=== PATIENT | female | born 1990 | race Hispanic/Latino ===

== ENCOUNTER 2025-03-02 14:13 | Emergency (ER) | payer BC ==
--- OUTSIDE RECORDS SUMMARY | 2025-03-02 14:19 | XMS REPORT | Continuity of Care Document ---
Author Name Unknown Address [address] [place] [address] [facility] [place] Address 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 Role Phone FELIPA LICEA Primary Care Physician Unavaila ble Nurse, Adc Pob Immunization Attending Clinician Unavailable Bal Barbour DO Attending Clinician BAL BARBOUR Attending Clinician Unavail able YAHIR ALMANZA Attending Clinician Unavailable WENDY AGUILERA Attending Clinician Unavail able SCOTT RANKIN Attending Clinician Unavailable [facility], ROOM-1 Attending Clinician Unavailable Payers Payer Name Policy Type Policy Number Effective Date Expirati on Date Source [facility] OUT [facility] STATE [id number] 2018 00:00:00 Problems Condition Name Condition Details Condition Category Status Onset Date Resolution Date Last Treatment Date Treating Clinician Comments Source Vaginal delivery Vaginal Delivery Problem Active 02-05 00:00: 00 [facility] Amenorrhea Amenorrhea Problem Active 01-08 00:00: 00 [facility] No known active problems No known active problems Disease [facility] Allergies, Adverse Reactions, Alerts Allergy Name Allergy Type Status Severity Reaction(s) Onset Date Inactive Date Treating Clinician Comments Source No Known Allergie s DA Active U 2018-07 00:00: 00 [facility] No Known Allergie s DA Active U 2 00:00: 00 [facility] No Known Allergie s DA Active U 3- 00:00: 00 [facility] SULFA (SULFONA MIDE ANTIBIOT ICS) Allergy to substanc e Active Other [facility] Reglan Allergy to substanc e Active Muscle cramps [facility] NO KNOWN ALLERGIE S Drug Class Active [facility] Social History Social Habit Start Date Stop Date Quantity Comments Source Sex Assigned At 1990 00:00:00 1990 00:00:00 [facility] Smoking Status Start Date Stop Date Source Unknown if ever smoked [facility] Never Smoker [facility] Medications Ordered Medication Name Filled Medication Name Start Date Stop Date Current Medication? Ordering Clinician Indication Dosage Frequency Signature (SIG) Comments Components Source acetaminoph en-codeine (TYLENOL-CO DEINE #3) 300-30 mg tablet 03-30 00:00: 00 Yes 1{tbl} Take 1 tablet by mouth every 6 (six) hours as needed for Pain (scale 4-6). [facility] alprazolam 0.5 mg tablet TK 1 T PO BID PRF ANXIETY alprazolam 0.5 mg tablet TK 1 T PO BID PRF ANXIETY No alprazolam 0.5 mg tablet TK 1 T PO BID PRF ANXIETY [facility] butalbital- acetaminoph en-caffeine 50 mg-300 mg-40 mg capsule Take 1 capsule every 4 hours by oral route. butalbital- acetaminoph en-caffeine 50 mg-300 mg-40 mg capsule Take 1 capsule every 4 hours by oral route. No 1capsul e(s) Q4H butalbital -acetamino phen-caffe ine 50 mg-300 mg-40 mg capsule Take 1 capsule every 4 hours by oral route. [facility] clindamycin HCl 300 mg capsule clindamycin HCl 300 mg capsule No clindamyci n HCl 300 mg capsule [facility] dextroamphe tamine-amph etamine 30 mg tablet TAKE 1 TABLET BY MOUTH TWICE A DAY dextroamphe tamine-amph etamine 30 mg tablet TAKE 1 TABLET BY MOUTH TWICE A DAY No dextroamph etamine-am phetamine 30 mg tablet TAKE 1 TABLET BY MOUTH TWICE A DAY [facility] fluticasone propionate 50 mcg/actuati on nasal spray,suspe nsion USE 2 SPRAYS IN EACH NOSTRIL IN THE MORNING FOR 7 DAYS. fluticasone propionate 50 mcg/actuati on nasal spray,suspe nsion USE 2 SPRAYS IN EACH NOSTRIL IN THE MORNING FOR 7 DAYS. No fluticason e propionate 50 mcg/actuat ion nasal spray,susp ension USE 2 SPRAYS IN EACH NOSTRIL IN THE MORNING FOR 7 DAYS. [facility] metoclopram vinny 10 mg tablet metoclopram vinny 10 mg tablet No metoclopra mide 10 mg tablet [facility] nortriptyli ne 25 mg capsule TK 1 C PO HS nortriptyli ne 25 mg capsule TK 1 C PO HS No nortriptyl ine 25 mg capsule TK 1 C PO HS [facility] ondansetron 4 mg disintegrat ing tablet ondansetron 4 mg disintegrat ing tablet No ondansetro n 4 mg disintegra ting tablet [facility] Prenate Enhance 28 mg iron-1 mg-400 mg capsule Prenate Enhance 28 mg iron-1 mg-400 mg capsule No Prenate Enhance 28 mg iron-1 mg-400 mg capsule [facility] promethazin e 12.5 mg tablet promethazin e 12.5 mg tablet No promethazi ne 12.5 mg tablet [facility] promethazin e 25 mg rectal suppository INSERT 1 SUPPOSITORY BY RECTAL ROUTE EVERY 6 HOURS NEEDED FOR NAUSEA AND VOMITING promethazin e 25 mg rectal suppository INSERT 1 SUPPOSITORY BY RECTAL ROUTE EVERY 6 HOURS NEEDED FOR NAUSEA AND VOMITING No promethazi ne 25 mg rectal suppositor y INSERT 1 SUPPOSITOR Y BY RECTAL ROUTE EVERY 6 HOURS NEEDED FOR NAUSEA AND VOMITING [facility] promethazin e 25 mg tablet TAKE 1 TABLET BY MOUTH EVERY 6 HOURS NEEDED FOR NAUSEA AND VOMITING promethazin e 25 mg tablet TAKE 1 TABLET BY MOUTH EVERY 6 HOURS NEEDED FOR NAUSEA AND VOMITING No promethazi ne 25 mg tablet TAKE 1 TABLET BY MOUTH EVERY 6 HOURS NEEDED FOR NAUSEA AND VOMITING [facility] sertraline 50 mg tablet TK 1 T PO D. sertraline 50 mg tablet TK 1 T PO D. No sertraline 50 mg tablet TK 1 T PO D. [facility] triazolam 0.25 mg tablet triazolam 0.25 mg tablet No triazolam 0.25 mg tablet [facility] valacyclovi r 500 mg tablet valacyclovi r 500 mg tablet No valacyclov ir 500 mg tablet [facility] zolpidem 5 mg tablet TK 1 T PO QHS zolpidem 5 mg tablet TK 1 T PO QHS No zolpidem 5 mg tablet TK 1 T PO QHS [facility] Vital Signs Vital Name Observation Time Observation Value Comments S ource BP Diastolic 2025-02-14 00:00:00 70 mm[Hg] [facility] Body Weight 2025-02-14 00:00:00 110 [lb_av] [facility] BP Systolic 2025-02-14 00:00:00 110 mm[Hg] [facility] BP Systolic 2025-01-14 00:00:00 109 mm[Hg] [facility] BMI (Body Mass Index) 2025-01-14 00:00:00 20.5 kg/m2 [facility] Body Weight 2025-01-14 00:00:00 105 [lb_av] [facility] Height 2025-01-14 00:00:00 60 [in_i] [facility] BP Diastolic 2025-01-14 00:00:00 74 mm[Hg] [facility] Procedures Procedure Date / Time Performed Performing Clinicia n Source unlisted imaging order 2025-02-14 00:00:00 [facility] US UTERUS 14 WK TRANSABDL GESTAT 2025-01-14 00:00:00 [facility] SARS-COV-2 COVID-19 VACCINE,0.3ML,IM (PFIZER) 2021-05-19 21:57:44 Doctor Unassigned, [facility] SARS-COV-2 COVID-19 VACCINE,0.3ML,IM (PFIZER) 2021-04-28 21:14:59 Doctor Unassigned, [facility] Caesarean Section [facility] ical Encounters Start Date/Time End Date/Time Encounter Type Admission Type Attending [facility] Care Facility Care Department Encounter ID Source 2025-02-14 00:00:00 2025-02-14 00:00:00 Paty Casas MD: [address], [address], [place] [address] , Ph. [facility] [place] Office* [id number] [facility] 2025-01-14 00:00:00 2025-01-14 00:00:00 Paty Casas MD: [address], [address], [place] [address] , Ph. [facility] [place] Office* [id number] [facility] 2021-05-19 16:55:49 2021-05-19 16:55:58 Imm/Inj Visit Nurse, Grayson [facility] [id number] [facility] 2021-05-19 16:30:00 2021-05-19 16:55:58 Outpatient BAL ARRIAGA [facility] [id number] [facility] 2021-04-28 16:20:00 2021-04-28 16:20:00 [id number] 2021-04-28 16:12:29 2021-04-28 16:12:40 Imm/Inj Visit NurseGrayson Immunbethany Barbour [facility] [id number] [facility] 2020-09-30 12:50:00 2020-09-30 12:50:00 Outpatient YAHIR PEACE [facility] [id number] [facility] 2020-09-17 17:00:00 2020-09-17 17:00:00 Outpatient WENDY DUNCAN [facility] [id number] [facility] 2020-08-17 19:40:00 2020-08-17 19:40:00 Outpatient R SCOTT RANKIN [facility] [id number] [facility] 2019-03-14 11:00:00 2019-03-14 11:00:00 Appointmen t; [facility]OM[facility], ROOM-1 [facility], ROOM-1 [facility] [id number] [place] [facility] ans Results Test Description Test Time Test Comments Results Result Co mments Source [facility] (dipstick) panel - [id number] 00:00:00* Test Item Value Reference Range Interpretation Comme nts specific gravity (test code = specific gravity) 1.017 1.005-1.030 pH (test code = pH) 7.0 5.0-7.5 urine-color (test code = urine-color) YELLOW yellow appearance (test code = appearance) CLOUDY clear A WBC esterase (test code = WB C esterase) NEGATIVE negative protein (test code = protein) NEGATIVE negative/trace glucose (test code = glucose) NEGATIVE negative ketones (test code = ketones) NEGATIVE negative occult blood (test code = oc cult blood) NEGATIVE negative bilirubin (test code = bilirubin) NEGATIVE negative urobilinogen,semi-qn (test c ode = urobilinogen,semi-qn) 0.2 mg/dL 0.2-1.0 nitrite, urine (test code = nitrite, urine) NEGATIVE negative microscopic examination (radha t code = microscopic examination) COMMENT [facility] and [facility]ho(D) [id number] 00:00:00* Test Item Value Reference Range Interpretation Comme nts ABO grouping (test code = AB O grouping) O Rh factor (test code = Rh factor) POSITIVE [facility] Medical[facility]asles, Mumps and Rubella virus IgG panel [Units/volume] - Serum or [id number] 00:00:00* Test Item Value Reference Range Interpretation Comme nts rubella antibodies, IgG (test code = rubella antibodies, IgG) 2.18 index See_Comment [Automated Sxbbma ge] The system which generated this result transmitted reference range: immune >0.99. The reference range was not used to interpret this result as normal/abnormal. measles antibodies, IgG (test code = measles antibodies, IgG) <13.5 See_Comment L [Automated Sxbbma ge] The system which generated this result transmitted reference range: immune >16.4. The reference range was not used to interpret this result as normal/abnormal. mumps abs, IgG (test code = mumps abs, IgG) 24.4 AU/mL See_Comment [Automated Sxbbma Defend Your Head] The system which generated this result transmitted reference range: immune >10.9. The reference range was not used to interpret this result as normal/abnormal. [facility] surface Ag [Presence] in Serum or Plasma by [id number] 00:00:00* Test Item Value Reference Range Interpretation Comme nts HBsAg screen (test code = HB sAg screen) NEGATIVE negative [facility] [Presence] in Serum or Plasma 2025-01-16 00:00:00* Test Item Value Reference Range Interpretation Comme nts antibody screen (test code = antibody screen) NEGATIVE negative [facility]P24 Ag with [id number] 00:00:00* Test Item Value Reference Range Interpretation Comme nts HIV Ab/P24 Ag screen (test c ode = HIV Ab/P24 Ag screen) NON REACTIVE non reactive [facility] pallidum screening [id number] 00:00:00* Test Item Value Reference Range Interpretation Comme nts T pallidum antibodies (test code = T pallidum antibodies) NON REACTIVE non reactive interpretation: (test code = interpretation:) COMMENT [facility] electrophoresis panel in [id number] 00:00:00* Test Item Value Reference Range Interpretation Comme nts HGB F (test code = HGB F) 0.0 % 0.0-2.0 HGB A (test code = HGB A) 97.4 % 96.4-98.8 HGB A2 (test code = HGB A2) 2.6 % 1.8-3.2 HGB S (test code = HGB S) 0.0 % See_Comment [Automated Sxbbma ge] The system which generated this result transmitted reference range: 0.0. The reference range was not used to interpret this result as normal/abnormal. interpretation: (test code = interpretation:) COMMENT [facility] panel - [id number] 00:00:00* Test Item Value Reference Range Interpretation Comme nts creatinine, urine (test code = creatinine, urine) 49.9 mg/dL not estab. protein,total,urine (test co de = protein,total,urine) 4.7 mg/dL not estab. protein/creat ratio (test co de = protein/creat ratio) 94 mg/g creat 0-200 [facility] W Auto Differential panel - [id number] 00:00:00* Test Item Value Reference Range Interpretation Comme nts WBC (test code = WBC) 9.8 10 3.7-12.0 RBC (test code = RBC) 3.95 10 3.60-5.50 HGB (test code = HGB) 12.3 g/dL 11.5-15.6 HCT (test code = HCT) 36.6 % 34.5-46.5 MCV (test code = MCV) 92.5 um 80.0-102.0 MCH (test code = MCH) 31.0 pg 25.0-34.1 MCHC (test code = MCHC) 33.5 g/dL 29.0-35.0 RDW (test code = RDW) 14.7 % 10.9-16.9 plt (test code = plt) 266 10 136-392 MPV (test code = MPV) 8.6 um 7.4-11.1 gran % (test code = gran %) 74.0 % 36.0-78.0 lymph % (test code = lymph %) 19.1 % 12.0-48.0 mono % (test code = mono %) 5.2 % 0.0-13.0 eos % (test code = eos %) 1 % 0-8 baso % (test code = baso %) 1 % 0-2 gran # (test code = gran #) 7.3 10 1.2-6.8 H lymph # (test code = lymph #) 1.9 10 0.7-3.2 mono # (test code = mono #) 0.5 10 0.1-0.8 eos # (test code = eos #) 0.1 10 0.0-0.4 baso # (test code = baso #) 0.1 10 0.0-0.2 [facility] A1[facility]/Hemoglobin.total in [id number] 00:00:00* Test Item Value Reference Range Interpretation Comme nts Hemoglobin A1c/Hemoglobin.to amy in Blood (test code = 4548-4) 4.5 % <5.6 [facility] Center[facility] syncytial virus RNA [Presence] in Specimen by KATHARINA with probe [id number] 00:00:00* Test Item Value Reference Range Interpretation Comme nts AST (SGOT) (test code = AST (SGOT)) 31 U/L 0-40 [facility] W[facility]AUTO [id number] 11:21:00* Test Item Value Reference Range Interpretation Comme nts WHITE BLOOD CELL (test code = WBC) 10.8 K/mm3 6.6-12.1 N RED BLOOD CELL (test code = RBC) 3.03 M/mm3 3.45-5.01 L HEMOGLOBIN (test code = HGB) 7.2 g/dL 10.7-13.9 L HEMATOCRIT (test code = HCT) 24.3 % 32.1-42.1 L MEAN CELL VOLUME (test code = MCV) 80 fL 84.1-94.8 L MEAN CELL HGB (test code = MCH) 23.8 pg 27-35 L MEAN CELL HGB CONCETRATION ( test code = MCHC) 29.6 gm/dL 32.2-34.1 L RED CELL DISTRIBUTION WIDTH (test code = RDW) 15.8 % 12.4-16.5 N PLATELET COUNT (test code = PLT) 223 K/mm3 133-385 N IMMATURE PLATELET FRACTION ( test code = IPF) 0.0 % 0.0-10.8 N MEAN PLATELET VOLUME (test c ode = MPV) 9.7 fl 9.1-12.7 N NEUTROPHIL % (test code = NT%) 70.7 % 56.5-79.4 N LYMPHOCYTE % (test code = LY%) 21.7 % 14.3-34.3 N MONOCYTE % (test code = MO%) 4.4 % 5.1-10.4 L EOSINOPHIL % (test code = EO%) 2.1 % 0.1-3.0 N BASOPHIL % (test code = BA%) 0.4 % 0.1-1.0 N NEUTROPHIL # (test code = NT#) 7.6 K/mm3 LYMPHOCYTE # (test code = LY#) 2.3 K/mm3 MONOCYTE # (test code = MO#) 0.5 K/mm3 EOSINOPHIL # (test code = EO#) 0.23 K/mm3 BASOPHIL # (test code = BA#) 0.0 K/mm3 RBC MORPHOLOGY REQUIRED (radha t code = RBCM) NORMAL NORMAL PLATELET MORPHOLOGY REQUIRED (test code = PLTMR) NORMAL NORMAL CBC W/AUTO [id number] 12:29:00* Test Item Value Reference Range Interpretation Comme nts WHITE BLOOD CELL (test code = WBC) 10.3 K/mm3 6.6-12.1 N RED BLOOD CELL (test code = RBC) 3.13 M/mm3 3.45-5.01 L HEMOGLOBIN (test code = HGB) 7.3 g/dL 10.7-13.9 L HEMATOCRIT (test code = HCT) 24.7 % 32.1-42.1 L MEAN CELL VOLUME (test code = MCV) 79 fL 84.1-94.8 L MEAN CELL HGB (test code = MCH) 23.3 pg 27-35 L MEAN CELL HGB CONCETRATION ( test code = MCHC) 29.6 gm/dL 32.2-34.1 L RED CELL DISTRIBUTION WIDTH (test code = RDW) 15.3 % 12.4-16.5 N PLATELET COUNT (test code = PLT) 211 K/mm3 133-385 N IMMATURE PLATELET FRACTION ( test code = IPF) 0.0 % 0.0-10.8 N MEAN PLATELET VOLUME (test c ode = MPV) 9.5 fl 9.1-12.7 N NEUTROPHIL % (test code = NT%) 76.9 % 56.5-79.4 N LYMPHOCYTE % (test code = LY%) 16.6 % 14.3-34.3 N MONOCYTE % (test code = MO%) 4.1 % 5.1-10.4 L EOSINOPHIL % (test code = EO%) 1.5 % 0.1-3.0 N BASOPHIL % (test code = BA%) 0.2 % 0.1-1.0 N NEUTROPHIL # (test code = NT#) 8.0 K/mm3 LYMPHOCYTE # (test code = LY#) 1.7 K/mm3 MONOCYTE # (test code = MO#) 0.4 K/mm3 EOSINOPHIL # (test code = EO#) 0.15 K/mm3 BASOPHIL # (test code = BA#) 0.0 K/mm3 RBC MORPHOLOGY REQUIRED (radha t code = RBCM) NORMAL NORMAL PLATELET MORPHOLOGY REQUIRED (test code = PLTMR) NORMAL NORMAL QUESTIONBLE RESULT,RECOLLECT,SPOKE WITH SANDOVAL HEPATITIS B [id number] 14:13:00* Test Item Value Reference Range Interpretation Comme nts AG HEPATITIS B SURFACE (test code = HBSAG) NONREACTIVE NONREACTIVE AB HEPATITIS C [id number] 14:13:00* Test Item Value Reference Range Interpretation Comme nts AB HEPATITIS C (test code = HCVAB) NONREACTIVE NONREACTIVE SIGNAL TO CUTOFF (test code = CUTOFF) <0.02 <0.80 N AB [id number] 14:13:00* Test Item Value Reference Range Interpretation Comme nts AB TREPONEMA (test code = TREPAB) NONREACTIVE NONREACTIVE AB HIV 1 14:13:00* Test Item Value Reference Range Interpretation Comme nts AB HIV 1 2 (test code = [id number]) Nonreactive NonReactive It is recognized that currently available assays for thedetection of antibodies to HIV-1 and/or HIV-2 may notdetect all infected individuals. A negative test result doesnot exclude the possibility of exposure to or infection withHIV. HIV antibodies may be undetectable in some stages ofthe infection and in some clinical conditions. AB HIV 1 14:12:00* Test Item Value Reference Range Interpretation Comme nts AB HIV 1 2 (test code = [id number]) Nonreactive NonReactive It is recognized that currently available assays for thedetection of antibodies to HIV-1 and/or HIV-2 may notdetect all infected individuals. A negative test result doesnot exclude the possibility of exposure to or infection withHIV. HIV antibodies may be undetectable in some stages ofthe infection and in some clinical conditions. CBC W/AUTO [id number] 06:29:00* Test Item Value Reference Range Interpretation Comme nts WHITE BLOOD CELL (test code = WBC) 12.8 K/mm3 6.6-12.1 H RED BLOOD CELL (test code = RBC) 2.81 M/mm3 3.45-5.01 L HEMOGLOBIN (test code = HGB) 6.4 g/dL 10.7-13.9 LL RESULTS CALLED Saida MEHTA G.RN.READ BACK & CONFIRMED? Y.BY F.LAB.[facility] 07/06/19626.Results verified by repeat analysis HEMATOCRIT (test code = HCT) 21.8 % 32.1-42.1 L RESULTS CALLED Saida MEHTA G.RNREAD BACK & CONFIRMED? YBY F.LAB.[facility] 07/06/1928Results verified by repeat analysis MEAN CELL VOLUME (test code = MCV) 78 fL 84.1-94.8 L MEAN CELL HGB (test code = MCH) 22.8 pg 27-35 L MEAN CELL HGB CONCETRATION (test code = MCHC) 29.4 gm/dL 32.2-34.1 L RED CELL DISTRIBUTION WIDTH (test code = RDW) 14.9 % 12.4-16.5 N PLATELET COUNT (test code = PLT) 173 K/mm3 133-385 N IMMATURE PLATELET FRACTION (test code = IPF) 0.0 % 0.0-10.8 N MEAN PLATELET VOLUME (test code = MPV) 10.4 fl 9.1-12.7 N NEUTROPHIL % (test code = NT%) 66.8 % 56.5-79.4 N LYMPHOCYTE % (test code = LY%) 24.6 % 14.3-34.3 N MONOCYTE % (test code = MO%) 7.5 % 5.1-10.4 N EOSINOPHIL % (test code = EO%) 0.5 % 0.1-3.0 N BASOPHIL % (test code = BA%) 0.2 % 0.1-1.0 N NEUTROPHIL # (test code = NT#) 8.6 K/mm3 LYMPHOCYTE # (test code = LY#) 3.2 K/mm3 MONOCYTE # (test code = MO#) 1.0 K/mm3 EOSINOPHIL # (test code = EO#) 0.07 K/mm3 BASOPHIL # (test code = BA#) 0.0 K/mm3 RBC MORPHOLOGY REQUIRED (test code = RBCM) NORMAL NORMAL PLATELET MORPHOLOGY REQUIRED (test code = PLTMR) NORMAL NORMAL AG HEPATITIS B [id number] 10:07:00* Test Item Value Reference Range Interpretation Comme nts AG HEPATITIS B SURFACE (test code = HBSAG) NONREACTIVE NONREACTIVE AB HEPATITIS C [id number] 10:07:00* Test Item Value Reference Range Interpretation Comme nts AB HEPATITIS C (test code = HCVAB) NONREACTIVE NONREACTIVE SIGNAL TO CUTOFF (test code = CUTOFF) <0.02 <0.80 N AB [id number] 10:07:00* Test Item Value Reference Range Interpretation Comme nts AB TREPONEMA (test code = TREPAB) NONREACTIVE NONREACTIVE AB HIV 1 10:07:00* Test Item Value Reference Range Interpretation Comme nts AB HIV 1 2 (test code = [id number]) NONREACTIVE AG HEPATITIS B [id number] 09:36:00* Test Item Value Reference Range Interpretation Comme nts AG HEPATITIS B SURFACE (test code = HBSAG) NONREACTIVE NONREACTIVE AB HEPATITIS C [id number] 09:36:00* Test Item Value Reference Range Interpretation Comme nts AB HEPATITIS C (test code = HCVAB) NONREACTIVE SIGNAL TO CUTOFF (test code = CUTOFF) <0.80 AB [id number] 09:36:00* Test Item Value Reference Range Interpretation Comme nts AB TREPONEMA (test code = TREPAB) NONREACTIVE NONREACTIVE AB HIV 1 09:36:00* Test Item Value Reference Range Interpretation Comme nts AB HIV 1 2 (test code = [id number]) NONREACTIVE COMPREHENSIVE METABOLIC [id number] 09:26:00* Test Item Value Reference Range Interpretation Comme nts SODIUM (test code = NA) 141 mEq/L 135-145 N POTASSIUM (test code = K) 2.8 mEq/L 3.5-5.0 LL RESULTS VERIFIED BY REPEAT ANALYSISRESULTS CALLED TO LEVI JoelREAD BACK & CONFIRMED? YES.BY F.LAB.ELB1 07/05/1987. CHLORIDE (test code = CL) 105 mEq/L 100-115 N CARBON DIOXIDE (test code = CO2) 26 mEq/L 22-31 N ANION GAP (test code = GAP) 13.00 10-20 N GLUCOSE (test code = GLU) 86 mg/dL 65-110 N BLOOD UREA NITROGEN (test code = BUN) 4 mg/dL 7-18 L GLOMERULAR FILTRATION RATE (test code = GFR) 190 ml/min >60 N CREATININE (test code = CREAT) 0.4 mg/dL 0.5-1.0 L TOTAL PROTEIN (test code = PROT) 5.3 gm/dL 6.3-8.2 L ALBUMIN (test code = ALB) 2.3 gm/dL 3.4-4.8 L CALCIUM (test code = CA) 7.9 mg/dL 8.4-10.2 L BILIRUBIN TOTAL (test code = BILT) 0.2 mg/dL 0.2-1.0 N SGOT/AST (test code = AST) 18 units/L 15-37 N SGPT/ALT (test code = ALT) 15 units/L 12-78 N ALKALINE PHOSPHATASE TOTAL (test code = ALKP) 150 units/L 46-116 H CBC W/AUTO [id number] 08:57:00* Test Item Value Reference Range Interpretation Comme nts WHITE BLOOD CELL (test code = WBC) 9.3 K/mm3 6.6-12.1 N RED BLOOD CELL (test code = RBC) 3.40 M/mm3 3.45-5.01 L HEMOGLOBIN (test code = HGB) 7.8 g/dL 10.7-13.9 L HEMATOCRIT (test code = HCT) 26.0 % 32.1-42.1 L MEAN CELL VOLUME (test code = MCV) 77 fL 84.1-94.8 L MEAN CELL HGB (test code = MCH) 22.9 pg 27-35 L MEAN CELL HGB CONCETRATION ( test code = MCHC) 30.0 gm/dL 32.2-34.1 L RED CELL DISTRIBUTION WIDTH (test code = RDW) 15.1 % 12.4-16.5 N PLATELET COUNT (test code = PLT) 211 K/mm3 133-385 N IMMATURE PLATELET FRACTION ( test code = IPF) 0.0 % 0.0-10.8 N MEAN PLATELET VOLUME (test c ode = MPV) 10.6 fl 9.1-12.7 N NEUTROPHIL % (test code = NT%) 67.8 % 56.5-79.4 N LYMPHOCYTE % (test code = LY%) 23.9 % 14.3-34.3 N MONOCYTE % (test code = MO%) 6.4 % 5.1-10.4 N EOSINOPHIL % (test code = EO%) 1.2 % 0.1-3.0 N BASOPHIL % (test code = BA%) 0.3 % 0.1-1.0 N NEUTROPHIL # (test code = NT#) 6.3 K/mm3 LYMPHOCYTE # (test code = LY#) 2.2 K/mm3 MONOCYTE # (test code = MO#) 0.6 K/mm3 EOSINOPHIL # (test code = EO#) 0.11 K/mm3 BASOPHIL # (test code = BA#) 0.0 K/mm3 RBC MORPHOLOGY REQUIRED (radha t code = RBCM) NORMAL NORMAL PLATELET MORPHOLOGY REQUIRED (test code = PLTMR) NORMAL NORMAL URINALYSIS [id number] 01:36:00* Test Item Value Reference Range Interpretation Comme nts UA COLOR (test code = COLU) STRAW YELLOW UA APPEARANCE (test code = APPU) CLEAR CLEAR UA GLUCOSE DIPSTICK (test co de = DGLUU) NEGATIVE NEG UA BILIRUBIN DIPSTICK (test code = BILU) NEGATIVE NEG UA KETONE DIPSTICK (test cod e = KETU) NEGATIVE NEG UA SPECIFIC GRAVITY (test co de = SGU) 1.006 1.001-1.035 N UA BLOOD DIPSTICK (test code = HERO) NEG NEG UA PH DIPSTICK (test code = KVNG) 7.0 5-9 UA PROTEIN DIPSTICK (test co de = PROU) NEGATIVE NEG UA UROBILINIOGEN DIPSTICK (test code = URO) NEGATIVE mg/dL NEG UA NITRITE DIPSTICK (test co de = BANDAR) NEG NEG UA LEUKOCYTE ESTERASE DIPSTI CK (test code = LEUU) NEG NEG UA WBC (test code = WBCU) 0-2 #/hpf NONE SEEN UA RBC (test code = RBCU) 0-2 #/hpf NONE SEEN UA EPITHELIAL CELLS (test co de = EPIU) RARE #/HPF RARE-FEW URINE SAMPLE: CLEAN CATCH- US PREG UT [id number] 21:03:00Patient Name: RUSH JO Unit No: [id number] EXAMS: CPT CODE: [id number] US PREG UT TRANSVAGINAL 16531 TRANSABDOMINAL OBSTETRICAL PELVIC ULTRASOUND AND BIOPHYSICAL PROFILE INDICATION: IUP 33.0 WEEKS; DECREASED MOVEMENT. UTERINE CONTRACTIONS. TECHNIQUE: Transabdominal obstetrical pelvic ultrasound was performed with penny scale and Doppler images. A biophysical profile was performed.COMPARISONS: Obstetric ultrasound 03/22/2019 FINDINGS: The cervix is closed and the cervical length measures between 2.2 and 3.2 cm. There is a grade 2-3 posterior fundal placenta. There is no placenta previa or placental abruption. There is a single live intrauterine gestation in vertex presentation. The heart rate is 121 bpm. The amniotic fluid index is 13.6 cm. The deepest vertical pocketis 7.1 cm. Biophysical profile: breathin/2 tone: 2/2 movement: 2/2 Amniotic fluid: 2/2 Total score: 8/8 The maternal right ovary measures 3 x 2.3 x 2.2 cm. The left ovary is notvisualized. IMPRESSION: 1. There is a single live intrauterine gestation in vertex presentation. 2.Normal biophysical profile score of 8/8. 3. Normal amniotic fluid index of 13.6 cm. 4. There is no placenta previa or placental abruption. 5. The cervix is closed and the cervical length measures between 2.2 and 3.2 cm. at 2102 Reported and signed by: Nixon Ham DO [facility] NAME: RUSH JO Radiology Department PHYS: Yehuda Eaton MD [address] : 1990 AGE: 29 SEX: F [place], [place] [address] LOC: Viviana.SHELL PHONE #: [phone] EXAM DATE: 06/12/2019 STATUS: REG FAX #: [phone] RAD NO: Page 1 Signed Report (CONTINUED) Patient Name: GREGORIO JORICHARDSON Osborn Unit No: [id number] EXAMS: CPT CODE: [id number] PREG UT TRANSVAGINAL 54150 (Continued) CC: Yehuda Eaton MD Technologist: Niharika Winn RDMS Probe: [id number] Trnscrbd D/ (2102) [id number] Orig Print D/T: S: 06/12/2019 (2105) [facility] NAME: RUSH JO Radiology Department PHYS: ENID. Yehuda Eaton MD [address] : 1990 AGE: 29 SEX: [place] [address] LOC: PetronaSHELL PHONE #: [phone] EXAM DATE: 06/12/2019 STATUS: REG ER FAX #: [phone] RAD NO: Page 2 Signed Report Patient Name: RUSH JO Unit No: [id number] EXAMS: CPT CODE: [id number] US PREG UT TRANSVAGINAL 46145 (Continued) [facility] NAME: RUSH JO Radiology Department PHYS: Yehuda Eaton MD[address] : 1990 AGE: 29 SEX: F [place] [address] LOC: PetronaSHELL PHONE #: [phone] EXAM DATE: 06/12/2019 STATUS: REG ER FAX #: [phone] RAD NO: Page 3 SignedReport- US FET BIO PH KS W/O NST 2019-06-12 21:03:00Patient Name: RUSH JO Unit No: [id number] EXAMS: CPT CODE: [id number] US FET BIO PH KS W/O NST [address]187 TRANSABDOMINAL OBSTETRICAL PELVIC ULTRASOUND AND BIOPHYSICAL PROFILE INDICATION: IUP 33.0 WEEKS; DECREASED MOVEMENT. UTERINE CONTRACTIONS. TECHNIQUE: Transabdominal obstetrical pelv ic ultrasound was performed with penny scale and Doppler images. A biophysical profile was performed. COMPARISONS: Obstetric ultrasound 03/22/2019 FINDINGS: The cervix is closed and the cervical lengthmeasures between 2.2 and 3.2 cm. There is a grade 2-3 posterior fundal placenta. There is no placenta previa or placental abruption. There is a single live intrauterine gestation in vertex presentation. The heart rate is 121 bpm. The amniotic fluid index is 13.6 cm. The deepest vertical pocket is 7.1 cm. Biophysical profile: breathin/2 tone: 2/2 movement: 2/2 Amniotic fluid: 2/2 Total score: 8/8 The maternal right ovary measures 3 x 2.3 x 2.2 cm. The left ovary is not visualized. IMPRESSION: 1. There is a single live intrauterine gestation in vertex presentation. 2. Normal biophysical profile score of 8/8. 3. Normal amniotic fluid index of 13.6 cm. 4. There is no placenta previa or placental abruption. 5. The cervix is closed and the cervical length measures between 2.2 and 3.2 cm. at 2102 Reported and signed by: Nixon Ham DO [facility] NAME: RUSH JO Radiology Department PHYS: ENID Yehuda Eaton MD [address] : 1990 AGE: 29 SEX: F [place] [address] LOC: F.SHELL PHONE #: [phone] EXAM DATE: 06/12/2019 STATUS: REG ER FAX #: [phone] RAD NO: Page 1 Signed Report (CONTINUED) Patient Name: RUSH JOit No: [id number] EXAMS: CPT CODE: [id number] US FET BIO PH KS W/O NST 12548 (Continued) CC: Yehuda Eaton MD Technologist: Niharika Winn RDMS Probe: Trnscrbd D/ (2102) [email or web address] Orig Print D/T: S: 06/12/2019 (2105) [facility] NAME: RUSH JO Radiology Department PHYS: ENID. Yehuda Eaton MD [address] : 1990 AGE: 29 SEX: F [place] [address] LOC: F.SHELL PHONE #: [phone] EXAM DATE: 06/12/2019 STATUS: REG ER FAX #: [phone] RAD NO: Page 2 Signed Report Patient Name: RUSH JO Unit No: [id number] EXAMS: CPT CODE: [id number] US FET BIO PH KS W/O NST [address] (Continued) [facility] NAME: RUSH JO Radiology Department PHYS: ENID.Chapis Yehuda Eaton MD [address] : 1990 AGE: 29 SEX: F [place], [place] [address] LOC: F.SHELL PHONE #: [phone] EXAM DATE: 06/12/2019 STATUS: REG ER FAX #: [phone] RAD NO: Page 3 Signed ReportFETAL [id number] 20:38:00* Test Item Value Reference Range Interpretation Comme nts FIBRONECTIN (test code = FFN) NEGATIVE Among symptoma tic women, elevated levels (>0.05 ug/mL) offFN between 24 weeks and 34 weeks, 6 days indicate increasedrisk of delivery in <= 7 or <= 14 days from samplecollection. Similarly, among asymptomatic women, elevated levels of fFNbetween 22 weeks and 30 weeks, 6 days indicate increasedrisk of delivery in <= 34 weeks, 6 days of gestation. URINALYSIS [id number] 20:01:00* Test Item Value Reference Range Interpretation Comme nts UA COLOR (test code = COLU) STRAW YELLOW UA APPEARANCE (test code = APPU) CLEAR CLEAR UA GLUCOSE DIPSTICK (test co de = DGLUU) NEGATIVE NEG UA BILIRUBIN DIPSTICK (test code = BILU) NEGATIVE NEG UA KETONE DIPSTICK (test cod e = KETU) TRACE NEG A UA SPECIFIC GRAVITY (test co de = SGU) 1.008 1.001-1.035 N UA BLOOD DIPSTICK (test code = HERO) NEG NEG UA PH DIPSTICK (test code = KVNG) 7.0 5-9 UA PROTEIN DIPSTICK (test co de = PROU) NEGATIVE NEG UA UROBILINIOGEN DIPSTICK (test code = URO) NEGATIVE mg/dL NEG UA NITRITE DIPSTICK (test co de = BANDAR) NEG NEG UA LEUKOCYTE ESTERASE DIPSTI CK (test code = LEUU) NEG NEG UA WBC (test code = WBCU) #/hpf NONE SEEN UA EPITHELIAL CELLS (test co de = EPIU) #/HPF RARE-FEW Comments to Patient Carrier: LDO AURINE SAMPLE: CLEAN CATCHURINALYSIS COMPLETE 2019-06-12 20:01:00* Test Item Value Reference Range Interpretation Comme nts UA COLOR (test code = COLU) STRAW YELLOW UA APPEARANCE (test code = APPU) CLEAR CLEAR UA GLUCOSE DIPSTICK (test co de = DGLUU) NEGATIVE NEG UA BILIRUBIN DIPSTICK (test code = BILU) NEGATIVE NEG UA KETONE DIPSTICK (test cod e = KETU) TRACE NEG A UA SPECIFIC GRAVITY (test co de = SGU) 1.008 1.001-1.035 N UA BLOOD DIPSTICK (test code = HERO) NEG NEG UA PH DIPSTICK (test code = KVNG) 7.0 5-9 UA PROTEIN DIPSTICK (test co de = PROU) NEGATIVE NEG UA UROBILINIOGEN DIPSTICK (test code = URO) NEGATIVE mg/dL NEG UA NITRITE DIPSTICK (test co de = BANDAR) NEG NEG UA LEUKOCYTE ESTERASE DIPSTI CK (test code = LEUU) NEG NEG UA WBC (test code = WBCU) 0-2 #/hpf NONE SEEN UA RBC (test code = RBCU) 0-2 #/hpf NONE SEEN UA EPITHELIAL CELLS (test co de = EPIU) RARE #/HPF RARE-FEW UA BACTERIA (test code = BACU) NEGATIVE /HPF RARE-FEW Comments to Patient Carrier: JUAN C ESPINOZA SAMPLE: CLEAN CATCHURINALYSIS COMPLETE 2019-06-06 16:49:00* Test Item Value Reference Range Interpretation Comme nts UA COLOR (test code = COLU) STRAW YELLOW UA APPEARANCE (test code = APPU) CLEAR CLEAR UA GLUCOSE DIPSTICK (test co de = DGLUU) NEGATIVE NEG UA BILIRUBIN DIPSTICK (test code = BILU) NEGATIVE NEG UA KETONE DIPSTICK (test cod e = KETU) NEGATIVE NEG UA SPECIFIC GRAVITY (test co de = SGU) 1.008 1.001-1.035 N UA BLOOD DIPSTICK (test code = HERO) NEG NEG UA PH DIPSTICK (test code = KVNG) 7.0 5-9 UA PROTEIN DIPSTICK (test co de = PROU) NEGATIVE NEG UA UROBILINIOGEN DIPSTICK (test code = URO) NEGATIVE mg/dL NEG UA NITRITE DIPSTICK (test co de = BANDAR) NEG NEG UA LEUKOCYTE ESTERASE DIPSTI CK (test code = LEUU) NEG NEG UA WBC (test code = WBCU) 0-2 #/hpf NONE SEEN UA RBC (test code = RBCU) 0-2 #/hpf NONE SEEN UA EPITHELIAL CELLS (test co de = EPIU) RARE #/HPF RARE-FEW UA BACTERIA (test code = BACU) NEGATIVE /HPF RARE-FEW UA MUCUS (test code = MUCU) RARE NONE SEEN URINE SAMPLE: CLEAN CATCHINFLUENZA A B [id number] 03:37:00* Test Item Value Reference Range Interpretation Comme nts INFLUENZA A PCR (test code = FLUAPCR) NEGATIVE NEGATIVE INFLUENZA B PCR (test code = FLUBPCR) NEGATIVE NEGATIVE - US [id number] 02:01:00Patient Name: RUSH JO Unit No: [id number] EXAMS: CPT CODE: [id number] US LTD 12350 EXAM: US, US LTD: 03/22/2019, 0040 hours History: Short of breath. Feeding faint. 21 weeks . Comparison: 12/10/2018. TECHNIQUE: Sonographic evaluation is performed via transabdominal approach of the uterus using grayscale, color flow and Doppler imaging as appropriate.FINDINGS: Single live intrauterine gestation is noted in breech presentation. heart rate is 150 bpm. Placenta is fundal, grade 1. No evidence of placenta previa. Amniotic fluid is normal. Amniotic fluid index is 14.9 cm with largest pocket measuring 5.5 cm. Right ovary: 2.7 x 2.1 x 2.5 cm. Left ovary 2.1 x 1.4 x 1.9 cm. There is a 1.5 x 1.6 x 1.4 cm cyst in the right ovary. Normal flow is noted to the both ovaries. Cervical length is 3.8 cm. IMPRESSION: 1. Single viable intrauterine gestation in breech presentation. heart rate is 150 bpm. 2. Right ovarian cyst. SL: JORJE at 0201 Reported and signed by: Paul Camejo M.D. CC: Yehuda Eaton MD Technologist: JOURDAN SANTO RDMS, RVT Probe: Trnscrbd D/ (0201) [email or web address] Orig Print D/T: S: 03/22/2019 (0204) [facility] NAME: RUSH JO Radiology Department PHYS: Omega Bradford [address] : 1990 AGE: 28 SEX: F [place] [address] LOC: PetronaERS PHONE #: [phone] EXAM DATE:03/22/2019 STATUS: REG ER FAX #: [phone] RAD NO: Page 1 Signed Report Patient Name: LUC JO Unit No: [id number] EXAMS: CPT CODE: [id number] LTD 66981 (Continued) [facility] NAME: RUSH JO Radiology Department PHYS: Omega Bradford [address] : 1990 AGE: 28 SEX: F [place] [address] LOC: PetronaERS PHONE #: [phone] EXAM DATE: 03/22/2019 STATUS: REG ER FAX #: [phone] RAD NO: Page 2 Signed ReportB-TYPE NATRIURETIC [id number] 01:51:00* Test Item Value Reference Range Interpretation Comme nts B-TYPE NATRIURETIC PEPTIDE ( test code = BNP) 9.59 pg/mL 0-100 N Comments to Patient Carrier: Clean CatchSpecimen Comment: Clean CatchDRUGS OF ABUSE [id number] 01:51:00* Test Item Value Reference Range Interpretation Comme nts UR COCAINE (test code = COCAU) NEGATIVE NEGATIVE DETECTION CUT OF F: 150 ng/mL UR CANNABINOIDS (test code = CANU) NEGATIVE NEGATIVE DETECTION CUT OF F: 50 ng/mL UR AMPHETAMINE (test code = AMPHU) NEGATIVE NEGATIVE DETECTION CUT OF F: 500 ng/mL UR BARBITURATE QUAL (test code = BARBQLU) NEGATIVE NEGATIVE DETECTION CUT OF F: 200 ng/mL UR BENZODIAZEPINE (test code = BENZU) NEGATIVE NEGATIVE DETECTION CUT OF F: 150 ng/mL UR OPIATES QUAL (test code = OPIAQLU) NEGATIVE NEGATIVE DETECTION CUT OF F: 100 ng/mL UR PHENCYCLIDINE (PCP) (test code = PHENCU) NEGATIVE NEGATIVE DETECTION C UT OFF: 25 ng/mL Comments to Patient Carrier: Clean CatchSpecimen Comment: Clean CatchUA RFLX MICR CULT IF [id number] 01:47:00* Test Item Value Reference Range Interpretation Comme nts UA COLOR (test code = COLU) YELLOW YELLOW UA APPEARANCE (test code = APPU) CLEAR CLEAR UA GLUCOSE DIPSTICK (test code = DGLUU) NEGATIVE NEGATIVE UA BILIRUBIN DIPSTICK (test code = BILU) NEGATIVE NEGATIVE UA KETONE DIPSTICK (test cod e = KETU) NEGATIVE NEGATIVE UA SPECIFIC GRAVITY (test code = SGU) 1.008 1.001-1.035 N UA BLOOD DIPSTICK (test code = HERO) NEGATIVE NEGATIVE UA PH DIPSTICK (test code = KVNG) 7.0 5-9 UA PROTEIN DIPSTICK (test code = PROU) NEGATIVE NEGATIVE UA UROBILINIOGEN DIPSTICK (test code = URO) NEGATIVE mg/dL NEG UA NITRITE DIPSTICK (test code = BANDAR) NEGATIVE NEGATIVE UA LEUKOCYTE ESTERASE DIPSTICK (test code = LEUU) NEGATIVE NEG UA WBC (test code = WBCU) 0-2 #/hpf NONE SEEN UA RBC (test code = RBCU) NONE SEEN #/hpf NONE SEEN UA EPITHELIAL CELLS (test code = EPIU) RARE #/HPF RARE-FEW UA BACTERIA (test code = BACU) RARE #/hpf NONE SEEN UA MUCUS (test code = MUCU) RARE NONE SEEN Indication for culture: Flank PainPROTHROMBIN [id number] 01:42:00* Test Item Value Reference Range Interpretation Comme nts PROTHROMBIN TIME PATIENT (te st code = PTP) 10.4 secs 10.4-12.4 N IS PATIENT ON ANTICOAGULANTS ? NINTERNATIONAL NORMAL [id number] 01:42:00* Test Item Value Reference Range Interpretation Comme nts INTERNATIONAL NORMAL RATIO (test code = INR) 0.94 The INR is to be used only for monitoring oral anticoagulanttherapy. INDICATION INR VALUE 1. Prophylaxis including high risk surgery 2.0 - 2.52. Deep venous thrombosis. Pulmonary embolism. Atrial fibrillation or bioprosthetic heart valves 2.0 - 3.03. Mechanical heart valves or recurrent systemic embolism. 3.0 - 3.5 IS PATIENT ON ANTICOAGULANTS ? NTHROMBOPLASTIN TIME [id number] 01:42:00* Test Item Value Reference Range Interpretation Comme nts THROMBOPLASTIN TIME PARTIAL (test code = PTT) 25.7 secs 22-38 N IS PATIENT ON ANTICOAGULANTS ? [id number] 01:42:00* Test Item Value Reference Range Interpretation Comme nts FIBRINOGEN (test code = FIB) 327 mg/dL 309-518 N IS PATIENT ON ANTICOAGULANTS ? ND-DIMER [id number] 01:42:00* Test Item Value Reference Range Interpretation Comme nts D-DIMER QUANT (test code = DDIMER) 506 ng/mLDDU <255 H Reference Range in : <570 ng/ml A positive test does not provide a definitive diagnosis ofDVT and indicates the need for follow up clinical studies. The predictive value of a negative test is 98% for rulingout DVT. IS PATIENT ON ANTICOAGULANTS ? N- XR CHEST 2 [id number] 01:39:00Patient Name: RUSH JO Unit No: [id number] EXAMS: CPT CODE: [id number] XR CHEST 2 V 25388 EXAM: CR, XR chest 2 views: 03/22/2019, 0125 hours HISTORY: , sob TECHNIQUE: Frontal and lateral chest radiographs are obtained COMPARISON: None available. FINDINGS: Trachea is in midline. Heart is normal in size. Pulmonary vascularity is not congested. No airspace consolidation, pneumothorax or pleural effusion is seen. Osseous structures are unremarkable. IMPRESSION: No acute cardiopulmonary disease seen. SL:[JSYED-H] at 0139 Reported and signed by: Paul Camejo M.D. CC: Yehuda Eaton MD Technologist: Mary Kay Stout, RTTrnscrbd D/ (0139) saida.[email or web address] Orig Print D/T: S: 03/22/2019 (0142) [facility] NAME: RUSH JO Radiology Department PHYS: GABRIEL AnandOmega Keiry [address] : 1990 AGE: 28 SEX: F [place], [place] [address] LOC: EULALIA PHONE #: [phone] EXAM DATE: 03/22/2019 STATUS: REG ER FAX #: [phone] RAD NO: Page 1 Signed Report COMPREHENSIVE METABOLIC [id number] 01:24:00* Test Item Value Reference Range Interpretation Comme nts SODIUM (test code = NA) 139 mEq/L 135-145 N POTASSIUM (test code = K) 3.6 mEq/L 3.5-5.0 N CHLORIDE (test code = CL) 105 mEq/L 100-115 N CARBON DIOXIDE (test code = CO2) 24 mEq/L 22-31 N ANION GAP (test code = GAP) 13.50 10-20 N GLUCOSE (test code = GLU) 88 mg/dL 65-110 N BLOOD UREA NITROGEN (test co de = BUN) 5 mg/dL 7-18 L GLOMERULAR FILTRATION RATE ( test code = GFR) 191 ml/min >60 N CREATININE (test code = CREAT) 0.4 mg/dL 0.5-1.0 L TOTAL PROTEIN (test code = PROT) 6.3 gm/dL 6.3-8.2 N ALBUMIN (test code = ALB) 2.8 gm/dL 3.4-4.8 L CALCIUM (test code = CA) 8.3 mg/dL 8.4-10.2 L BILIRUBIN TOTAL (test code = BILT) 0.1 mg/dL 0.2-1.0 L SGOT/AST (test code = AST) 16 units/L 15-37 N SGPT/ALT (test code = ALT) 15 units/L 12-78 N ALKALINE PHOSPHATASE TOTAL ( test code = ALKP) 76 units/L 46-116 N Comments to Patient Carrier: Clean CatchSpecimen Comment: Clean CatchCREATINE KINASE (CK)2019-03-22 01:24:00* Test Item Value Reference Range Interpretation Comme nts CREATINE KINASE (CK) (test c ode = CK) 58 Units/L 26-192 N Comments to Patient Carrier: Clean CatchSpecimen Comment: Clean CatchLIPASE 2019-03-22 01:24:00* Test Item Value Reference Range Interpretation Comme nts LIPASE (test code = LIP) 98 units/L 73-393 N Comments to Patient Carrier: Clean CatchSpecimen Comment: Clean CatchMAGNESIUM 2019-03-22 01:24:00* Test Item Value Reference Range Interpretation Comme nts MAGNESIUM (test code = MAG) 1.5 mg/dL 1.8-2.4 L Comments to Patient Carrier: Clean CatchSpecimen Comment: Clean CatchTHYROID STIMULATING [id number] 01:24:00* Test Item Value Reference Range Interpretation Comme nts THYROID STIMULATING HORMONE (test code = TSH) 1.67 0.36-3.74 N Test Performed i n MicroInternational Units/mL Comments to Patient Carrier: Clean CatchSpecimen Comment: Clean CatchTROPONIN-I 2019-03-22 01:24:00* Test Item Value Reference Range Interpretation Comme nts TROPONIN-I (test code = TROPI) <0.017 ng/mL <0.056 N Comments to Patient Carrier: Clean CatchSpecimen Comment: Clean CatchB-TYPE NATRIURETIC [id number] 01:11:00* Test Item Value Reference Range Interpretation Comme nts B-TYPE NATRIURETIC PEPTIDE ( test code = BNP) pg/mL 0-100 Comments to Patient Carrier: Clean CatchSpecimen Comment: Clean CatchDRUGS OF ABUSE [id number] 01:11:00* Test Item Value Reference Range Interpretation Comme nts UR COCAINE (test code = COCAU) NEGATIVE NEGATIVE DETECTION CUT OF F: 150 ng/mL UR CANNABINOIDS (test code = CANU) NEGATIVE NEGATIVE DETECTION CUT OF F: 50 ng/mL UR AMPHETAMINE (test code = AMPHU) NEGATIVE NEGATIVE DETECTION CUT OF F: 500 ng/mL UR BARBITURATE QUAL (test code = BARBQLU) NEGATIVE NEGATIVE DETECTION CUT OF F: 200 ng/mL UR BENZODIAZEPINE (test code = BENZU) NEGATIVE NEGATIVE DETECTION CUT OF F: 150 ng/mL UR OPIATES QUAL (test code = OPIAQLU) NEGATIVE NEGATIVE DETECTION CUT OF F: 100 ng/mL UR PHENCYCLIDINE (PCP) (test code = PHENCU) NEGATIVE NEGATIVE DETECTION C UT OFF: 25 ng/mL Comments to Patient Carrier: Clean CatchSpecimen Comment: Clean CatchCBC W/AUTO [id number] 00:58:00* Test Item Value Reference Range Interpretation Comme nts WHITE BLOOD CELL (test code = WBC) 11.9 K/mm3 6.6-12.1 N RED BLOOD CELL (test code = RBC) 3.32 M/mm3 3.45-5.01 L HEMOGLOBIN (test code = HGB) 9.7 g/dL 10.7-13.9 L HEMATOCRIT (test code = HCT) 29.4 % 32.1-42.1 L MEAN CELL VOLUME (test code = MCV) 89 fL 84.1-94.8 N MEAN CELL HGB (test code = MCH) 29.2 pg 27-35 N MEAN CELL HGB CONCETRATION ( test code = MCHC) 33.0 gm/dL 32.2-34.1 N RED CELL DISTRIBUTION WIDTH (test code = RDW) 13.1 % 12.4-16.5 N PLATELET COUNT (test code = PLT) 232 K/mm3 133-385 N IMMATURE PLATELET FRACTION ( test code = IPF) 0.0 % 0.0-10.8 N MEAN PLATELET VOLUME (test c ode = MPV) 11.0 fl 9.1-12.7 N NEUTROPHIL % (test code = NT%) 67.2 % 56.5-79.4 N LYMPHOCYTE % (test code = LY%) 24.1 % 14.3-34.3 N MONOCYTE % (test code = MO%) 6.2 % 5.1-10.4 N EOSINOPHIL % (test code = EO%) 1.9 % 0.1-3.0 N BASOPHIL % (test code = BA%) 0.3 % 0.1-1.0 N NEUTROPHIL # (test code = NT#) 8.0 K/mm3 LYMPHOCYTE # (test code = LY#) 2.9 K/mm3 MONOCYTE # (test code = MO#) 0.7 K/mm3 EOSINOPHIL # (test code = EO#) 0.22 K/mm3 BASOPHIL # (test code = BA#) 0.0 K/mm3 RBC MORPHOLOGY REQUIRED (radha t code = RBCM) NORMAL NORMAL PLATELET MORPHOLOGY REQUIRED (test code = PLTMR) NORMAL NORMAL COMPREHENSIVE METABOLIC [id number] 14:35:00* Test Item Value Reference Range Interpretation Comme nts SODIUM (test code = NA) 135 mEq/L 135-145 N POTASSIUM (test code = K) 3.7 mEq/L 3.5-5.0 N CHLORIDE (test code = CL) 101 mEq/L 100-115 N CARBON DIOXIDE (test code = CO2) 23 mEq/L 22-31 N ANION GAP (test code = GAP) 14.40 10-20 N GLUCOSE (test code = GLU) 77 mg/dL 65-110 N BLOOD UREA NITROGEN (test co de = BUN) 8 mg/dL 7-18 N GLOMERULAR FILTRATION RATE ( test code = GFR) 191 ml/min >60 N CREATININE (test code = CREAT) 0.4 mg/dL 0.5-1.0 L TOTAL PROTEIN (test code = PROT) 6.9 gm/dL 6.3-8.2 N ALBUMIN (test code = ALB) 3.3 gm/dL 3.4-4.8 L CALCIUM (test code = CA) 9.1 mg/dL 8.4-10.2 N BILIRUBIN TOTAL (test code = BILT) 0.4 mg/dL 0.2-1.0 N SGOT/AST (test code = AST) 17 units/L 15-37 N SGPT/ALT (test code = ALT) 17 units/L 12-78 N ALKALINE PHOSPHATASE TOTAL ( test code = ALKP) 59 units/L 46-116 N [id number] 14:35:00* Test Item Value Reference Range Interpretation Comme nts LIPASE (test code = LIP) 67 units/L 73-393 L CBC W/AUTO [id number] 14:29:00* Test Item Value Reference Range Interpretation Comme nts WHITE BLOOD CELL (test code = WBC) 12.9 K/mm3 6.6-12.1 H RED BLOOD CELL (test code = RBC) 4.01 M/mm3 3.45-5.01 N HEMOGLOBIN (test code = HGB) 11.3 g/dL 10.7-13.9 N HEMATOCRIT (test code = HCT) 33.5 % 32.1-42.1 N MEAN CELL VOLUME (test code = MCV) 84 fL 84.1-94.8 L MEAN CELL HGB (test code = MCH) 28.2 pg 27-35 N MEAN CELL HGB CONCETRATION ( test code = MCHC) 33.7 gm/dL 32.2-34.1 N RED CELL DISTRIBUTION WIDTH (test code = RDW) 18.1 % 12.4-16.5 H PLATELET COUNT (test code = PLT) 251 K/mm3 133-385 N IMMATURE PLATELET FRACTION ( test code = IPF) 0.0 % 0.0-10.8 N MEAN PLATELET VOLUME (test c ode = MPV) 11.0 fl 9.1-12.7 N NEUTROPHIL % (test code = NT%) 81.2 % 56.5-79.4 H LYMPHOCYTE % (test code = LY%) 14.5 % 14.3-34.3 N MONOCYTE % (test code = MO%) 3.4 % 5.1-10.4 L EOSINOPHIL % (test code = EO%) 0.4 % 0.1-3.0 N BASOPHIL % (test code = BA%) 0.3 % 0.1-1.0 N NEUTROPHIL # (test code = NT#) 10.5 K/mm3 LYMPHOCYTE # (test code = LY#) 1.9 K/mm3 MONOCYTE # (test code = MO#) 0.4 K/mm3 EOSINOPHIL # (test code = EO#) 0.05 K/mm3 BASOPHIL # (test code = BA#) 0.0 K/mm3 RBC MORPHOLOGY REQUIRED (radha t code = RBCM) NORMAL NORMAL PLATELET MORPHOLOGY REQUIRED (test code = PLTMR) NORMAL NORMAL UA RFLX MICR CULT IF [id number] 14:12:00* Test Item Value Reference Range Interpretation Comme nts UA COLOR (test code = COLU) YELLOW YELLOW UA APPEARANCE (test code = APPU) Slightly-Cloudy CLEAR UA GLUCOSE DIPSTICK (test code = DGLUU) NEGATIVE NEG UA BILIRUBIN DIPSTICK (test code = BILU) NEGATIVE NEG UA KETONE DIPSTICK (test cod e = KETU) 1+ NEG A UA SPECIFIC GRAVITY (test code = SGU) 1.014 1.001-1.035 N UA BLOOD DIPSTICK (test code = HERO) NEG NEG UA PH DIPSTICK (test code = KVNG) 7.0 5-9 UA PROTEIN DIPSTICK (test code = PROU) NEGATIVE NEG UA UROBILINIOGEN DIPSTICK (test code = URO) NEGATIVE mg/dL NEG UA NITRITE DIPSTICK (test code = BANDAR) NEG NEG UA LEUKOCYTE ESTERASE DIPSTICK (test code = LEUU) NEG NEG UA WBC (test code = WBCU) 0-2 #/hpf NONE SEEN UA RBC (test code = RBCU) 0-2 #/hpf NONE SEEN UA EPITHELIAL CELLS (test code = EPIU) RARE #/HPF RARE-FEW UA MUCUS (test code = MUCU) RARE NONE SEEN Indication for culture: Suprapubic Pain- US PREG UT [id number] 14:28:00Patient Name: RUSH JO Unit No: [id number] EXAMS: CPT CODE: [id number] US PREG UT TRANSVAGINAL [id number] [facility] [address], [place] [address] OBSTETRICAL ULTRASOUND REPORT Pat. Name: RUSH JO Pat. No: [id number] Study Date: 12/10/2018 1:20pm , Age: 11 1990, 28 Pregnancies: 4, Para 2, Ab 1 LMP: 10/24/2018 GA by LMP: 06w5d GA by US: 06w5d GA Selected: 06w5d (LMP) [place]: 07/31/2019 Referring MD: Gonzalo Maria [facility] Science Specialist: Angelic Lopez RDMS, RVT CPT4: [id number] Hist/Ind: SCAN 1 VOMITING VAGINAL BLEEDING MEASUREMENTS AGE GROWTH EVALUATION Measurement GA Range Srce %for GA Ratios ----- ---- ------- CRL 0.7 cm 06w4d ([id number]) Hadl CRL 39% Sac 2.3 cm 06w6d ([id number]) Hell Sac 59% GA for sonogram 06w5d ([id number]) based on(Sac,CRL) Avg Cervical Length: 3.6 cm Heart Rate: 138 bpm MATERNAL ANATOMY Ovaries LxHxW (cm) Right 4.0 x 3.2 x 3.4 Vol: 22.8cc Left 3.2 x 1.5 x 1.6 Vol: 4.0cc Ovarian Cysts LxHxW (cm) R1: 2.4 x 2.2 x 2.3 Desc: Corpus Luteum CLINICAL SUMMARY Type of Gestation: Rasmussen, intrauterine. motion and organs seen: heart motion seen THERE IS A SMALL SUBCHORIONIC BLEED MEASURING 2.6X1.5X2.1CM. Thank you for allowing us to participate in the care of this patient. Kelechi Ramirez M.D. Electronic Signature 12/10/2018 02:28pm [facility] NAME: RUSH JO Radiology Department PHYS: Gonzalo Jamison [address] : 1990 AGE: 28 SEX: F [place] [address] LOC: Viviana.ERS PHONE #: [phone] EXAM DATE: 12/10/2018 STATUS: DEP ER FAX #: [phone] RAD NO: Page 1 Signed Report (CONTINUED) Patient Name: RSUH JO Unit No: [id number] EXAMS: CPT CODE: [id number] US PREG UT TRANSVAGINAL 94558 (Continued) at 1428 Reported and signed by: Kelechi Ramirez MD CC: Gonzalo Maria MDTechnologist: Angelic Lopez RDMS, RVT Probe: [id number] Trnscrbd D/ (1428) [email or web address] Print D/T: S: 12/13/2018 (5195) [facility] NAME: RUSH JO Radiology Department PHYS: Gonzalo Jamison [address] : 1990 AGE: 28 SEX: F [place] [address] LOC: Viviana.ERS PHONE #: [phone] EXAM DATE: 12/10/2018 STATUS: DEP ER FAX #: [phone] RAD NO: Page 2 Signed Report Patient Name: RUSH JO Unit No: [id number] EXAMS: CPT CODE: [id number] US PREG UT TRANSVAGINAL [address]98 (Continued) [facility] NAME: RUSH JO Radiology Department PHYS: YADIRA.Chapis - Gonzalo Maria [address] : 1990 AGE: 28 SEX: Viviana [place] [address] LOC: PetronaERS PHONE #: EXAM DATE: 12/10/2018 STATUS: DEP ER FAX #: [phone] RAD NO: Page 3 Signed Report- US PREG EVAL 1ST [id number] 14:28:00Patient Name: RUSH JO Unit No: [id number] EXAMS: CPT CODE: [id number] US PREG EVAL 1ST TRIMTR [address] [facility] [address] [place], [place] [address] OBSTETRICAL ULTRASOUND REPORT Pat. Name: RUSH JO Pat. No: [id number] Study Date: 12/10/2018 1:20pm , Age: 11 1990, 28 Pregnancies: Gravida4, Para 2, Ab 1 LMP: 10/24/2018 GA by LMP: 06w5d GA by US: 06w5d GA Selected: 06w5d (LMP) ALESIA: 07/31/2019 Referring MD: GONZALO MARIA Healthcare Science Specialist: Angelic Lopez RDMS, RVT CPT4: [id number] Admitting MD: GONZALO MARIA Hist/Ind: SCAN 1 VOMITING VAGINAL BLEEDING MEASUREMENTS AGE GROWTH EVALUATION Measurement GA Range Srce %for GA Ratios ----- ---- ------- CRL 0.7 cm 06w4d (80i5o-89r2l) Hadl CRL 39% Sac 2.3 cm 06w6d (27f1v-25g1x) Hell Sac 59% GA for sonogram 06w5d (73m0a-49r2f) based on (Sac,CRL) Avg Cervical Length: 3.6 cm Heart Rate: 138 bpm -- MATERNAL ANATOMY Ovaries LxHxW (cm) Right 4.0 x 3.2 x 3.4 Vol: 22.8cc Left 3.2 x 1.5 x 1.6 Vol: 4.0cc Ovarian Cysts LxHxW (cm) R1: 2.4 x 2.2 x 2.3 Desc: Corpus Luteum CLINICAL SUMMARY Type of Gestation: Rasmussen, intrauterine. motion and organs seen: heart motion seen THERE IS A SMALL SUBCHORIONIC BLEED MEASURING 2.6X1.5X2.1CM. Thank you for allowing us to participate in the care of this patient. Kelechi Ramirez M.D. Electronic Signature 12/10/2018 02:28pm [facility] NAME: SANDRORUSH Osborn Radiology Department PHYS: Gonzalo Jamison [address] : 1990 AGE: 28 SEX: [employer], [place] [address] LOC: EULALIA PHONE #: [phone] EXAM DATE: 12/10/2018 STATUS: ANAMIKA ER FAX #: [phone] RAD NO: Page 1 Signed Report (CONTINUED) Patient Name: RUSH JO Unit No: [id number] EXAMS: CPT CODE: [id number] PREG EVAL 1ST TRIMTR 16747 (Continued) at 1428 Reported and signed by: Kelechi Ramirez MD CC: Gonzalo Maria MD Technologist: Angelic Lopez RDMS, RVT Probe: Trnscrbd D/ (1428) [email or web address] Orig Print D/T: S: 12/10/2018 (1428) [facility] NAME:JO,RUSH Osborn Radiology Department PHYS: Rodney Jamisona [address] : [birth year] AGE: 28 SEX: F [place], [place] [address] LOC: PetronaERS PHONE #: [phone] EXAM DATE: 12/10/2018 STATUS: REG ER FAX #: [phone] RAD NO: Page 2 Signed Report Patient Name: RUSH JO Unit No: [id number] EXAMS: CPT CODE: [id number] US PREG EVAL 1ST TRIMTR 89080 (Continued) [facility] NAME: RUSH JO Radiology Department PHYS: GUTAL.Gonzalo Maria [address] : 1990 AGE: 28 SEX: F [place], [place] [address] LOC: EULALIA PHONE #: [phone] EXAM DATE: 12/10/2018 STATUS: REG ER FAX #: [phone] RAD NO: Page 3 Signed ReportHCG [id number] 14:05:00* Test Item Value Reference Range Interpretation Comme nts HCG SERUM (test code = HCG) 21730 INTERPRETATION:V ALUES BETWEEN 15-20 milliInternational units/mL NEED TO BERETESTED WITHIN 48 HOURS. All units for these ranges are in milliInternationalunits/mL0-1 WK AFTER CONCEPTION 0-50 1-2 WKS AFTER CONCEPTION 40-3002-3 WKS AFTER CONCEPTION 100-1,0003-4 WKS AFTER CONCEPTION 500-6,0001-2 MONTHS AFTER CONCEPTION 5,000-200,0002-3 MONTHS AFTER CONCEPTION 10,000-100,0002ND TRIMESTER 3,000-50,0003RD TRIMESTER 1,000-50,000 SPECIMENS WITH AN HCG LEVEL FROM 0-6 milliInternationalunits/mL SHOULD BE CONSIDERED NEGATIVE COMPREHENSIVE METABOLIC [id number] 13:41:00* Test Item Value Reference Range Interpretation Comme nts SODIUM (test code = NA) 139 mEq/L 135-145 N POTASSIUM (test code = K) 3.4 mEq/L 3.5-5.0 L CHLORIDE (test code = CL) 103 mEq/L 100-115 N CARBON DIOXIDE (test code = CO2) 26 mEq/L 22-31 N ANION GAP (test code = GAP) 13.10 10-20 N GLUCOSE (test code = GLU) 102 mg/dL 65-110 N BLOOD UREA NITROGEN (test co de = BUN) 12 mg/dL 7-18 N GLOMERULAR FILTRATION RATE ( test code = GFR) 120 ml/min >60 N CREATININE (test code = CREAT) 0.6 mg/dL 0.5-1.0 N TOTAL PROTEIN (test code = PROT) 6.5 gm/dL 6.3-8.2 N ALBUMIN (test code = ALB) 3.7 gm/dL 3.4-4.8 N CALCIUM (test code = CA) 8.7 mg/dL 8.4-10.2 N BILIRUBIN TOTAL (test code = BILT) 0.4 mg/dL 0.2-1.0 N SGOT/AST (test code = AST) 14 units/L 15-37 L SGPT/ALT (test code = ALT) 12 units/L 12-78 N ALKALINE PHOSPHATASE TOTAL ( test code = ALKP) 58 units/L 46-116 N [id number] 13:41:00* Test Item Value Reference Range Interpretation Comme nts AMYLASE (test code = NOEMI) 21 units/L 30-110 L [id number] 13:41:00* Test Item Value Reference Range Interpretation Comme nts LIPASE (test code = LIP) 71 units/L 73-393 L CBC W/AUTO [id number] 13:21:00* Test Item Value Reference Range Interpretation Comme nts WHITE BLOOD CELL (test code = WBC) 10.0 K/mm3 6.6-12.1 N RED BLOOD CELL (test code = RBC) 3.99 M/mm3 3.45-5.01 N HEMOGLOBIN (test code = HGB) 10.2 g/dL 10.7-13.9 L HEMATOCRIT (test code = HCT) 31.5 % 32.1-42.1 L MEAN CELL VOLUME (test code = MCV) 79 fL 84.1-94.8 L MEAN CELL HGB (test code = MCH) 25.6 pg 27-35 L MEAN CELL HGB CONCETRATION ( test code = MCHC) 32.4 gm/dL 32.2-34.1 N RED CELL DISTRIBUTION WIDTH (test code = RDW) 16.8 % 12.4-16.5 H PLATELET COUNT (test code = PLT) 229 K/mm3 133-385 N IMMATURE PLATELET FRACTION ( test code = IPF) 0.0 % 0.0-10.8 N MEAN PLATELET VOLUME (test c ode = MPV) 10.5 fl 9.1-12.7 N NEUTROPHIL % (test code = NT%) 72.3 % 56.5-79.4 N LYMPHOCYTE % (test code = LY%) 20.7 % 14.3-34.3 N MONOCYTE % (test code = MO%) 6.0 % 5.1-10.4 N EOSINOPHIL % (test code = EO%) 0.6 % 0.1-3.0 N BASOPHIL % (test code = BA%) 0.2 % 0.1-1.0 N NEUTROPHIL # (test code = NT#) 7.3 K/mm3 LYMPHOCYTE # (test code = LY#) 2.1 K/mm3 MONOCYTE # (test code = MO#) 0.6 K/mm3 EOSINOPHIL # (test code = EO#) 0.06 K/mm3 BASOPHIL # (test code = BA#) 0.0 K/mm3 RBC MORPHOLOGY REQUIRED (radha t code = RBCM) NORMAL NORMAL PLATELET MORPHOLOGY REQUIRED (test code = PLTMR) NORMAL NORMAL UA RFLX MICR CULT IF [id number] 13:18:00* Test Item Value Reference Range Interpretation Comme nts UA COLOR (test code = COLU) YELLOW YELLOW UA APPEARANCE (test code = APPU) CLOUDY CLEAR A UA GLUCOSE DIPSTICK (test co de = DGLUU) NEGATIVE NEG UA BILIRUBIN DIPSTICK (test code = BILU) NEGATIVE NEG UA KETONE DIPSTICK (test cod e = KETU) NEGATIVE NEG UA SPECIFIC GRAVITY (test co de = SGU) 1.025 1.001-1.035 N UA BLOOD DIPSTICK (test code = HERO) NEG NEG UA PH DIPSTICK (test code = KVNG) 5.0 5-9 UA PROTEIN DIPSTICK (test co de = PROU) NEGATIVE NEG UA UROBILINIOGEN DIPSTICK (t est code = URO) 1.0 mg/dL NEG UA NITRITE DIPSTICK (test co de = BANDAR) NEG NEG UA LEUKOCYTE ESTERASE DIPSTI CK (test code = LEUU) NEG NEG UA WBC (test code = WBCU) 3-5 #/hpf NONE SEEN A UA RBC (test code = RBCU) 0-2 #/hpf NONE SEEN UA EPITHELIAL CELLS (test co de = EPIU) RARE #/HPF RARE-FEW UA BACTERIA (test code = BACU) FEW /HPF RARE-FEW UA MUCUS (test code = MUCU) 4+ NONE SEEN PRODUCTS OF [id number] 19:39:00 RUN DATE: 08/28/18 [facility] PAGE 1 RUN TIME: 1053 Specimen Inquiry RUN USER: INTERFACE ------- -----[facility] [id number] AGE/SX: 28/F ROOM: RE08/24/18REG DR: Yehuda Eaton MD : [birth year] BED: DIS: STATUS: [facility] TLOC: SPEC #: [id number] RECD: 08/24/18 STATUS: LEONIDAS PLUNKETT #: [id number] KITTY: 08/24/18- [facility] DR: Yehuda Eaton MD ENTERED: 08/24/18SP TYPE: POC[ OTHR DR: Samantha Adkins MD ORDERED: LEVEL IV CODES: [id number] - ENDOMETRIUM, NO COPIES TO: Yehuda Eaton MD [address] [place] [address] Samantha Adkins AMD [address] [place] [address] PROCEDURES: LEVEL IV (Incomplete) TISSUES: ENDOMETRIUM, NOS - POC CLINICAL HISTORY 28 year old, incomplete (wpd) FINAL DIAGNOSIS Products of conception, curettage: - products of conception (placental villi, membranes), decidua and gestational endometrium - p57 and ploidy analysis pending, addendum report to follow ADDENDUM PENDING, SPECIMEN IS BEING SENT TO [facility] Tissue code 1 CPT code(s): 24348 [facility] dt: 08/27/18GROSS DESCRIPTION ANATOMIC SOURCE OF TISSUE (per Requisition): Products of conception The specimen is received in a formalin-filled container, labeled with the patient's CONTINUED ON NEXT PAGE - RUN DATE: 08/28/18 [facility] PAGE 2 RUN TIME: 1053 Specimen Inquiry RUN USER: INTERFACE --SPEC #: :[id number] PATIENT: RUSH JO #[id number] (Continued) GROSS DESCRIPTION (Continued) name and designated "products of conception". The specimen consists of multiple portions of franco and red tissue in a suction collection container aggregating to 7 x 5 x 5 cm. Analytics Developer sections are submitted in A and B. Eletrogóes/wpd 08/24/18 @ 9735 MICROSCOPIC DESCRIPTION Some villi have scalloping and inclusions. There is no circumferential trophoblastic proliferation. Rare cisterns are found. [facility] dt: 08/27/18------ ------ Signed Mylene Steven MD 08/27/181938 END OF REPORT PRODUCTS OF [id number] 19:39:00 RUN DATE: 09/05/18 [facility] PAGE 1 RUN TIME: 1145 Specimen Inquiry RUN USER: INTERFACE -------- ----[facility]USH [facility] #: [id number] AGE/SX: 28/F ROOM: RE08/24/18REG DR: Yehuda Eaton MD : [birth year] BED: DIS: STATUS: [facility] TLOC: SPEC #: [id number] RECD: 08/24/18 STATUS: LEONIDAS PLUNKETT #: [id number] KITTY: 08/24/18- SUBM DR: Yehuda Eaton MD ENTERED: 08/24/18 SP TYPE: POC[ OTHR DR: Samantha Adkins MD ORDERED: LEVEL IV, DNA PLOIDY/CELL ADDENDUM FINDINGS Add endum #1 Entered: 09/03/18 The following are the p57 and Ploidy Analysis received from [facility] on 09/03/18. 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 Trophoblast proliferation is focal and generally polarized. p57 stains villous trophoblast nuclei. The p57 (KIP2) gene (CDKN1C) is strongly paternally imprinted, being expressed from the maternal allele in most cases. Because complete moles contain only paternal genes, complete moles show absence of significantly reduced expression of p57 (KIP2) relative to partial moles or a hydropic abortus which contain both maternal and paternal genes. In normal placentas, partial moles and a hydropic abortus, P57 (KIP2) shows nuclear expression in cytotrophoblast and villous mesenchyme, irrespective of the morphology of the villi. In complete moles there is an absence of staining in the cytotrophoblast and villous mesenchyme while the intervillous trophoblast and decidua show strong expression and thus serves as a positive internal control. Ploidy study shows diploid DNA content in villous trophoblast nuclei. Combining the morphology, p57 expression anddiploid DNA content, this is first trimester chorionic villi with hydropic degeneration. IHC AND SPECIAL STAINS: All controls were reviewed and showed appropriate positive and negative reactivity. FLOW CYTOMETRY ANALYSIS RESULTS: DIPLOID DNA Index: 1.00 Reference Range: D d <=1 Aneuploid >1.1 CONTINUED ON NEXT PAGE RUN DATE: 09/05/18 [facility] PAGE 2 RUN TIME: 1145 Specimen Inquiry RUN USER: INTERFACE SPEC #: [id number] PATIENT: RUSH JO #[id number] (Continued)--------- --- ADDENDUM FINDINGS (Continued) S- I acknowledge the above findings. Fernanda. Sanjiv Steven, Pathologist / ksr September 03, 2018 @ 0803 Addendum Signed Mylene Steven MD 09/05/18 1145 (prelim) Mylene Steven MD 09/05/18 1145 CODES: [id number] - ENDOMETRIUM, NO COPIES TO: Yehuda Eaton MD [address] [facility] [address] [place] [address] Samantha Adkins MD [address] [facility] [address] [place] [address] PROCEDURES: LEVEL IV (Incomplete) DNA PLOIDY/CELL (Incomplete) TISSUES: ENDOMETRIUM, NOS - POC CLINICALHISTORY 28 year old, incomplete (wpd) FINAL DIAGNOSIS Products of conception, curettage: -products of conception (placental villi, membranes), decidua and gestational endometrium - p57 and ploidy analysis pending, addendum report to follow ADDENDUM PENDING, SPECIMEN IS BEING SENT TO [facility] CONTINUED ON NEXT PAGE RUN DATE: 09/05/18 [facility] PAGE 3 RUN TIME: 1145 Specimen Inquiry RUN USER: INTERFACE SPEC #: [id number] PATIENT: RUSH JO #[id number] ( Continued) FINAL DIAGNOSIS (Continued) Tissue code 1 CPT code(s): 01261 [facility] dt: 08/27/18 GROSS DESCRIPTIONANATOMIC SOURCE OF TISSUE (per Requisition): Products of conception The specimen is received in a formalin- filled container, labeled with the patient's name and designated "products of conception". The specimen consists of multiple portions of franco and red tissue in a suction collection container aggregating to 7 x 5 x 5 cm. Analytics Developer sections are submitted in A and B. hz/wpd 08/24/18 @ 4275 MICROSCOPIC DESCRIPTION Some villi have scalloping and inclusions. There is no circumferential trophoblastic proliferation. Rare cisterns are found. [facility] dt: 08/27/18 Signed Mylene Steven MD 08/27/181938 END OF REPORT CBC W/AUTO [id number] 11:37:00* Test Item Value Reference Range Interpretation Comme nts WHITE BLOOD CELL (test code = WBC) 10.9 K/mm3 6.6-12.1 N RED BLOOD CELL (test code = RBC) 3.51 M/mm3 3.45-5.01 N HEMOGLOBIN (test code = HGB) 10.6 g/dL 10.7-13.9 L HEMATOCRIT (test code = HCT) 32.4 % 32.1-42.1 N MEAN CELL VOLUME (test code = MCV) 92 fL 84.1-94.8 N MEAN CELL HGB (test code = MCH) 30.2 pg 27-35 N MEAN CELL HGB CONCETRATION ( test code = MCHC) 32.7 gm/dL 32.2-34.1 N RED CELL DISTRIBUTION WIDTH (test code = RDW) 13.2 % 12.4-16.5 N PLATELET COUNT (test code = PLT) 226 K/mm3 133-385 N IMMATURE PLATELET FRACTION ( test code = IPF) 0.0 % 0.0-10.8 N MEAN PLATELET VOLUME (test c ode = MPV) 10.4 fl 9.1-12.7 N NEUTROPHIL % (test code = NT%) 73.6 % 56.5-79.4 N LYMPHOCYTE % (test code = LY%) 16.8 % 14.3-34.3 N MONOCYTE % (test code = MO%) 5.9 % 5.1-10.4 N EOSINOPHIL % (test code = EO%) 2.9 % 0.1-3.0 N BASOPHIL % (test code = BA%) 0.3 % 0.1-1.0 N NEUTROPHIL # (test code = NT#) 8.0 K/mm3 LYMPHOCYTE # (test code = LY#) 1.8 K/mm3 MONOCYTE # (test code = MO#) 0.6 K/mm3 EOSINOPHIL # (test code = EO#) 0.32 K/mm3 BASOPHIL # (test code = BA#) 0.0 K/mm3 RBC MORPHOLOGY REQUIRED (radha t code = RBCM) NORMAL NORMAL PLATELET MORPHOLOGY REQUIRED (test code = PLTMR) NORMAL NORMAL - US PREG EVAL 1ST [id number] 14:42:00Patient Name: GREGORIO JORICHARDSON Osborn Unit No: [id number] EXAMS: CPT CODE: [id number] US PREG EVAL 1ST TRIMTR [address] [facility] [address] [place] [address] OBSTETRICAL ULTRASOUND REPORT Pat. Name: JORUSH Pat. No: [id number] Study Date: 08/21/2018 1:48pm , Age: 11 1990, 28 Pregnancies: Gravida3, Para 2 LMP: 06/07/2018 GA by LMP: 10w5d GA by US: 09w3d GA Selected: 10w5d (LMP) ALESIA: 03/14/2019Referring MD: Yehuda Eaton M.D. Healthcare Science Specialist: Betzaida Johnson, [facility] CPT4: 06493 Hist/Ind: SCAN 1NO FHT MEASUREMENTS AGE GROWTH EVALUATION Measurement GA Range Srce %for GA Ratios ----- ---- ------- CRL 2.7 cm 09w3d (56q3y-77d5w) Hadl CRL <05 GA for sonogram 09w3d (40t0x-60a6x) based on (CRL) Avg MATERNAL ANATOMY Ovaries LxHxW (cm) Right 4.1 x 1.8 x 1.8 Vol: 7.0cc Left 3.3 x 2.0 x 3.0 Vol: 10.4cc Ovarian Cysts LxHxW (cm) L1: 2.0 x 1.4 x 2.0Desc: Corpus Luteum --------- CLINICAL SUMMARY Type of Gestation: Rasmussen abnormalities observed: CARDIAC ACTIVITY NOT SEEN. NO GROSS ABNORMALITIES SEEN. Placental location: Forming Amniotic fluid volume is normal. Uterus and adnexa: No significant abnormalities seen IMP: EMBRYONIC DEMISE. FINDINGS CONVEYED BY PHONE TO DR Soo EATON AT 2:38PM 08/21/2018 Thank you for allowing us to participate in the care of this patient. Christine Garcia M.D. Electronic Signature 08/21/2018 02:42pm [facility] NAME: JORUSH Radiology Department PHYS: IFRAH Yehuda Eaton MD [address] : 1990 AGE: 28 SEX: F [place], [place] [address] LOC: [facility] PHONE #: [phone] EXAM DATE: 08/21/2018 STATUS: REG CLI FAX #: [phone] RAD NO: Page 1 Signed Report (CONTINUED) Patient Name: GREGORIO JORICHARDSON Osborn Unit No: [id number] EXAMS: CPT CODE: [id number] US PREG EVAL 1ST TRIMTR 09259 (Continued) at 1442 Reported and signed by: Juanis Garcia MD CC: Sangeeta Eaton MD; Yehuda Eaton MD Technologist: Betzaida Johnson, RDMSProbe: Trnscrbd D/ (1442) [email or web address] Orig Print D/T: S: 08/21/2018 (1442) [facility] NAME: RUSH JO Irena Radiology Department PHYS: Yehuda Eaton MD[address] : 1990 AGE: 28 SEX: F [place] [address] LOC: Viviana.RAD PHONE #: [phone] EXAM DATE: 08/21/2018 STATUS: REG CLI FAX #: [phone] RAD NO: Page 2 Signed Report Patient Name: RUSH JO Unit No: [id number] EXAMS: CPT CODE: [id number] US PREG EVAL 1ST TRIMTR 13903 (Continued) [facility] NAME: LUC JOPRINCESS Osborn Radiology Department PHYS: Yehuda Eaton MD [address] : 1990 AGE: 28 SEX: F [place] [address] LOC: [facility] PHONE #: [phone] EXAM DATE: 08/21/2018 STATUS: REG CLI FAX #: [phone] RAD NO: Page 3 Signed Report- US PREG UT TRANSVAGINAL 2018-08-21 14:42:00Patient Name: RUSH JO Unit No: [id number] EXAMS: CPT CODE: [id number] US PREG UT TRANSVAGINAL [address] [facility] [place] [facility] [address] [place], [place] [address] OBSTETRICAL ULTRASOUND REPORT Pat. Name: RUSH JO Pat. No: [id number] Study Date: 08/21/2018 1:48pm , Age: 11 1990, 28 Pregnancies: 3, Para 2 LMP: 06/07/2018 GA by LMP: 10w5d GA by US: 09w3d GA Selected: 10w5d (LMP) ALESIA: 03/14/2019 Referring MD: Yehuda Eaton M.D. Healthcare Science Specialist: Betzaida Johnson RDMS CPT4: 50769 Hist/Ind: SCAN 1 NO FHT MEASUREMENTS AGEFETAL GROWTH EVALUATION Measurement GA Range Srce %for GA Ratios ----- ---- ------- CRL 2.7 cm 09w3d (03j7u-85h4c) Hadl CRL <05 GA for sonogram 09w3d (81d9s-56x8d) based on (CRL) Avg MATERNAL ANATOMY Ovaries LxHxW (cm) Right 4.1 x 1.8 x 1.8 Vol: 7.0cc Left 3.3 x 2.0 x 3.0 Vol: 10.4cc Ovarian Cysts LxHxW (cm) L1: 2.0 x 1.4 x 2.0 Desc: Corpus Luteum CLINICAL SUMMARY Type of Gestation: Rasmussen abnormalities observed: CARDIAC ACTIVITY NOT SEEN. NO GROSS ABNORMALITIES SEEN. Placental location: Forming Amniotic fluid volume is normal. Uterus and adnexa: No significant abnormalities seen IMP: EMBRYONIC DEMISE. [facility] [place] [facility] NAME: LUC JOPRINCESS Osborn Radiology Department PHYS: Yehuda Gonsales MD [address] : 1990 AGE: 28 SEX: F [place], [place] [address] LOC: [facility] PHONE #: [phone] EXAM DATE: 08/21/2018 STATUS: DEP CLI FAX #: [phone] RAD NO: Page 1 Signed Report (CONTINUED) Patient Name: SANDRORUSH C Unit No: [id number] EXAMS: CPT CODE: [id number] US PREG UT TRANSVAGINAL [address] (Continued) FINDINGS CONVEYED BY PHONE TO DR Soo EATON AT 2:38PM 08/21/2018 Thank you for allowing us to participate in the care of this patient. Christine Garcia M.D. <Electronic Signature> 08/21/2018 02:42pm " Manually signed by Juanis Garcia MD Reported and signed by: Juanis Garcai MD CC: Yehuda Eaton MD Technologist: Betzaida Johnson, [facility] Probe: [id number] Trnscrbd D/ (1021) LEIGHACR Advanced To Signed Dt/Tm/User: 09/10/18 (1022) LEIGHACR Orig Print D/T: S: 09/10/2018 (1022) [facility] NAME: RUSH JO Radiology Department PHYS: Viviana KLINE Yehuda Eaton MD [address] : 1990 AGE: 28 SEX: F [place] [address] LOC: [facility] PHONE #: [phone] EXAM DATE: 08/21/2018 STATUS: DEP CLI FAX #: [phone] RAD NO: Page 2 Signed Report Patient Name: RUSH JO Unit No: [id number] EXAMS: CPTCODE: [id number] PREG UT TRANSVAGINAL [address] (Continued) [facility] NAME: RUSH JO Radiology Department PHYS: Yehuda Eaton MD [address] : 1990AGE: 28 SEX: F [place] [address] LOC: [facility] PHONE #: [phone] EXAM DATE: 08/21/2018 STATUS: DEP CLI FAX #: [phone] RAD NO: Page 3 Signed Report Notes Date/Time Note Provider Source 2019-07-09 06:39:00 [facility] ([facility]) [employer] Progress Note REPORT#:[id number] REPORT STATUS: Signed DATE:07/09/19 TIME: 0639 PATIENT: RUSH JO UNIT #: [id number] ROOM/BED: [address] : [birth year] AGE: 29 SEX: F ATTEND: Yehuda Eaton MD ADM AUTHOR: Yehuda Eaton MD * ALL edits or amendments must be made on the electronic/computer document * Subjective Comments: Pt again reports some lightheadedness/dizzyness when ambulating. Said this had been getting better, but noticed it again when ambulating. Also notes that her bleeding is a little heavier than she expected. Will repeat CBC. Objective Current Medications Medications: Active Meds + DC'd Last 24 Hrs Hydrocodone Bitart/Acetaminophen 2 TAB Q6H PRN PRN PO Ibuprofen 600 MG Q6H PRN PRN PO Ondansetron HCl 4 MG Q6H PRN PRN PO Zolpidem Tartrate 5 MG BEDTIME PRN PRN PO Ferrous Sulfate 325 MG TID MEALS PO Diphtheria/Pertussis/Tetanus Vacc 0.5 ML BEFORE DISCHG IM Hydroxyzine HCl 25 MG Q8H PRN PRN PO Multivi/Iron Carb/Fe Sulf/FA/Prenat 1 EA DAILY PO Docusate Sodium 100 MG 0900,2100 PO Al Hydrox/Mg Hydrox/Simethicone 30 ML ASDIR PRN PO Cetylpyridinium Chloride 1 JANETH ASDIR PRN MM Diphenhydramine HCl 25 MG Q6H PRN PRN PO Diphtheria/Pertussis/Tetanus Vacc 0.5 ML BEFORE DISCHG IM Hydrocortisone/Pramoxine 1 GM ASDIR PRN RECTAL (CKD) Magnesium Hydroxide 30 ML BID PRN PRN PO Measles/Mumps/Rubella Vaccine Live 1 VIAL BEFORE DISCHG PRN SUBQ Methylergonovine Maleate 0.2 MG ASDIR PRN IM Misoprostol 1,000 MCG ASDIR PRN RECTAL Misoprostol 1,000 MCG ASDIR PRN PO (CKD) Neomycin/Polymyxin/Bacitracin 1 APPLIC ASDIR TOPICAL (CKD) Polyethylene Glycol 17 GM DAILY PRN PRN PO Simethicone 80 MG PC HS PRN PRN PO Physical Exam VS/I O: Last Documented: Result Date Time B/P 104/71 07/09 0133 Pulse 75 07/09 0133 Resp 18 07/09 013 Temp 98.9 07/08 1328 Pulse Ox 100 07/05 1330 B/P Mean 77.0 07/05 1300 Vital Signs Date Temp Pulse Resp B/P B/P Mean Pulse Ox FiO2 07/08-12/17 98.4-98.9 73-75 18 104-117/71-79 Patient Weight Weight (lb): 135 Weight (oz): Weight (kg): 61.235 General Appearance: alert, awake, no acute distress, conversant, face symmetrical, MS normal, oriented, Sitting up in bed, pumping. 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 Pt is again symptomatic. Will monitor bleeding today. Started PO iron. 3) Breast. 4) Incision healing well, FF<Umb. 5) Meredith reg diet. 6) Healy removed POD#1, voiding without difficulty. 7) TDaP. at 0641 RPT #:[id number] END OF REPORT [facility] 2019-07-08 07:17:00 [facility] ([facility]) OB Disch REPORT#:[id number] REPORT STATUS: Signed DATE:07/08/19 TIME: 716 PATIENT: RUSH JO UNIT #: [id number] ROOM/BED: [address] : 91 AGE: 29 SEX: F ATTEND: Yehuda Eaton MD ADM AUTHOR: Yehuda Eaton MD * ALL edits or amendments must be made on the electronic/computer document * Subjective Subjective Admission EGA (wks/days): 36 weeks Comments: Pt notes doing well. Hgb improved. Pt is sitting up in bed, pumping. Notes baby is doing well. Objective General VS: Vital Signs Date Temp Pulse Resp B/P B/P Mean Pulse Ox FiO2 07/07-07/08 98.0-98.4 66-85 18 114-129/78-87 Last Documented: Result Date Time B/P 129/87 07/08 0406 Temp 98.3 07/08 0406 Pulse 74 07/08 0406 Resp 18 07/08 0406 Pulse Ox 100 07/05 1330 B/P Mean 77.0 07/05 1300 Patient Weight Weight (lb): 135 Weight (oz): Weight (kg): 61.235 Physical Exam Cardiac: normal rhythm Lungs: clear to auscultation Neuro: Exam: alert, oriented x3, normal speech Abdomen: post gravid, soft, no abnormal tenderness, no guarding, no rebound tenderness, normoactive bowel sounds Incision site: well approximated edges, dry, no drainage, no inflammation Uterus: involution appropriate, non-tender Fundus: firm, below the umbilicus, non-tender Lower extremities: Edema: none Discharge Summary Discharge Summary Free Text A P: 29 y/o S/P Repeat LTCS, POD#3 1) POD#3: AVSS 2) Pain well controlled with PO pain meds. 3) Incision healing well. 4) Anemia: Chronic. Will take PO iron BID. Asymptomatic and vitals stable. 5) FF<Umb. Normal lochia. 6) DC home today, f/u with me in 1-2 weeks. Date of admission: Date of admission: 07/05/19 Admission diagnosis: anemia Hospital course: repeat admit Procedures: repeat CS delivery Baby A: status: live born Gender: female 1 minute: 8 5 minutes: 9 Anomalies: None Instructions: routine instr sheet given Diet: regular Activity and restrictions: up ad urmila, may shower, pelvic rest, no intercourse for 6 wks, no driving Contraception discussed: abstinence for 4-6 weeks, will discuss at PP visit Discharge meds: Continue taking these medications: PNV/FE FUM/FA ( MULTIVITAMIN) 1 TAB TAB 1 TABLET ORAL DAILY. Start taking the following new medications: DOCUSATE SODIUM (COLACE) 100 MG CAP 100 MILLIGRAM ORAL TWICE DAILY. Qty = 60 No Refills IBUPROFEN (MOTRIN) 600 MG TAB 600 MILLIGRAM ORAL EVERY 6 HOURS NEEDED. as needed for pain Qty = 60 Refills = 1 HYDROcodone/APAP (NORCO 5/325) 1 TAB TAB 1 TABLET ORAL EVERY 6 HOURS NEEDED. as needed for Pain Qty = 20 No Refills Prescriptions: e-prescribe Rx drug database reviewed: no Consultation(s): Consultation performed: anesthesia Discharge condition: stable Discharge to: home Follow up in: 2 weeks at 0719 RPT #:[id number] END OF REPORT [facility] 2019-07-08 07:17:00 [facility] ([facility]) OB Disch REPORT#:[id number] REPORT STATUS: Signed DATE:07/08/19 TIME: 716 PATIENT: RUSH JO UNIT #: [id number] ROOM/BED: [address] : 91 AGE: 29 SEX: F ATTEND: Yehuda Eaton MD ADM AUTHOR: Yehuda Eaton MD * ALL edits or amendments must be made on the electronic/computer document * See Addendum Subjective Subjective Admission EGA (wks/days): 36 weeks Comments: Pt notes doing well. Hgb improved. Pt is sitting up in bed, pumping. Notes baby is doing well. Objective General VS: Vital Signs Date Temp Pulse Resp B/P B/P Mean Pulse Ox FiO2 07/07-07/08 98.0-98.4 66-85 18 114-129/78-87 Last Documented: Result Date Time B/P 129/87 07/08 0406 Temp 98.3 07/08 0406 Pulse 74 07/08 0406 Resp 18 07/08 0406 Pulse Ox 100 07/05 1330 B/P Mean 77.0 07/05 1300 Patient Weight Weight (lb): 135 Weight (oz): Weight (kg): 61.235 Physical Exam Cardiac: normal rhythm Lungs: clear to auscultation Neuro: Exam: alert, oriented x3, normal speech Abdomen: post gravid, soft, no abnormal tenderness, no guarding, no rebound tenderness, normoactive bowel sounds Incision site: well approximated edges, dry, no drainage, no inflammation Uterus: involution appropriate, non-tender Fundus: firm, below the umbilicus, non-tender Lower extremities: Edema: none Discharge Summary Discharge Summary Free Text A P: 29 y/o S/P Repeat LTCS, POD#3 1) POD#3: AVSS 2) Pain well controlled with PO pain meds. 3) Incision healing well. 4) Anemia: Chronic. Will take PO iron BID. Asymptomatic and vitals stable. 5) FF<Umb. Normal lochia. 6) DC home today, f/u with me in 1-2 weeks. Date of admission: Date of admission: 07/05/19 Admission diagnosis: anemia Hospital course: repeat admit Procedures: repeat CS delivery Baby A: status: live born Gender: female 1 minute: 8 5 minutes: 9 Anomalies: None Instructions: routine instr sheet given Diet: regular Activity and restrictions: up ad urmila, may shower, pelvic rest, no intercourse for 6 wks, no driving Contraception discussed: abstinence for 4-6 weeks, will discuss at PP visit Discharge meds: Continue taking these medications: PNV/FE FUM/FA ( MULTIVITAMIN) 1 TAB TAB 1 TABLET ORAL DAILY. Start taking the following new medications: DOCUSATE SODIUM (COLACE) 100 MG CAP 100 MILLIGRAM ORAL TWICE DAILY. Qty = 60 No Refills IBUPROFEN (MOTRIN) 600 MG TAB 600 MILLIGRAM ORAL EVERY 6 HOURS NEEDED. as needed for pain Qty = 60 Refills = 1 HYDROcodone/APAP (NORCO 5/325) 1 TAB TAB 1 TABLET ORAL EVERY 6 HOURS NEEDED. as needed for Pain Qty = 20 No Refills Prescriptions: e-prescribe Rx drug database reviewed: no Consultation(s): Consultation performed: anesthesia Discharge condition: stable Discharge to: home Follow up in: 2 weeks at 0719 Addendum 1: 07/10/19 0942 by Yehuda Eaton MD Discharge held for bleeding/symptoms of anemia -pt notes improved. Will DC home with PO iron. 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 She notes that she still feels a little "cloudy" when getting up to go to the bathroom. She started taking PO iron yesterday, and is tolerating reg diet. She notes normal lochia. She is voiding without difficulty. She is pumping, with good milk production. Objective Current Medications Medications: Active Meds + DC'd Last 24 Hrs Hydrocodone Bitart/Acetaminophen 2 TAB Q6H PRN PRN PO Ibuprofen 600 MG Q6H PRN PRN PO Ondansetron HCl 4 MG Q6H PRN PRN PO Zolpidem Tartrate 5 MG BEDTIME PRN PRN PO Ferrous Sulfate 325 MG TID MEALS PO Diphtheria/Pertussis/Tetanus Vacc 0.5 ML BEFORE DISCHG IM Hydroxyzine HCl 25 MG Q8H PRN PRN PO Multivi/Iron Carb/Fe Sulf/FA/Prenat 1 EA DAILY PO Docusate Sodium 100 MG 0900,2100 PO Hydroxyzine HCl 25 MG ANES Q3H PRN PRN PO Ketorolac Tromethamine 15 MG ANES Q6H PRN PRN IM Ketorolac Tromethamine 30 MG ANES Q6H PRN PRN IV Meperidine HCl 250 ML ANES ASDIR EPIDURAL (CKD) Nalbuphine HCl 10 MG ANES Q3H PRN PRN IM Naloxone HCl 0.4 MG ANES ASDIR PRN IV Al Hydrox/Mg Hydrox/Simethicone 30 ML ASDIR PRN PO Cetylpyridinium Chloride 1 JANETH ASDIR PRN MM Dextrose/Lactated Ringer's 1,000 ML ASDIR IV (DC) Diphenhydramine HCl 25 MG Q6H PRN PRN PO Diphtheria/Pertussis/Tetanus Vacc 0.5 ML BEFORE DISCHG IM Hydrocortisone/Pramoxine 1 GM ASDIR PRN RECTAL (CKD) Magnesium Hydroxide 30 ML BID PRN PRN PO Measles/Mumps/Rubella Vaccine Live 1 VIAL BEFORE DISCHG PRN SUBQ Methylergonovine Maleate 0.2 MG ASDIR PRN IM Misoprostol 1,000 MCG ASDIR PRN RECTAL Misoprostol 1,000 MCG ASDIR PRN PO (CKD) Neomycin/Polymyxin/Bacitracin 1 APPLIC ASDIR TOPICAL (CKD) Polyethylene Glycol 17 GM DAILY PRN PRN PO Simethicone 80 MG PC HS PRN PRN PO Physical Exam VS/I O: Last Documented: Result Date Time B/P 112/75 07/07 0342 Temp 98.2 07/07 0342 Pulse 71 07/07 0342 Resp 18 07/07 0342 Pulse Ox 100 07/05 1330 B/P Mean 77.0 07/05 1300 Vital Signs Date Temp Pulse Resp B/P B/P Mean Pulse Ox FiO2 07/06-07/07 97.5-98.2 66-71 18-20 112-114/75-79 24 hour I O ending at 0700: 07/07 0700 07/06 1900 Intake Total Output Total 1350.00 Balance -1350.00 Output, Other 1350.00 Patient Weight Weight (lb): 135 Weight (oz): Weight (kg): 61.235 General Appearance: alert, awake, no acute distress, conversant, face symmetrical, MS normal, oriented Wound/incision: Location: Pfannenstiel Site condition: dressing clean dry, dressing intact HEENT: moist mucosal membranes, normocephalic Neck; full range of motion, supple Cardiovascular: regular rate and rhythm Respiratory: no distress, no tenderness, aerating well, symmetric expansion Abdomen: non-tender, soft Genitourinary: no bladder distention, no flank pain, no healy Extremities: no calf tnederness, no edema Neuro/PIECE WORK INSPECTOR: alert, oriented x 3, normal speech Skin: dry, no rash Psychiatry: normal affect, normal judgment/insight, normal mood Uterus: normal Fundus: below umbilicus, non-tender, firm Diagnosis, Assessment Plan Free Text A P: 29 y/o s/p repeat LTCS, uterine window 1) POD#2: AVSS 2) Anemia: Repeat: Will monitor vitals and symptoms closely. Pt understands that she is not to get up out of bed without assistance. If she becomes more symptomatic, will give 1-2 units PRBCs. Otherwise, will monitor closely and repeat CBC this am. Started PO iron. 3) Breast. 4) Incision healing well, FF<Umb. 5) Meredith reg diet. 6) Healy removed POD#1, voiding without difficulty. 7) TDaP. 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 We discussed her low blood count, and that if her blood count decreases further, or if she becomes more symptomatic we may need to give her a blood transfusion. Her vitals are stable. She is sitting up in bed, appears well. Her healy has been removed, and she is due to void. She notes normal lochia. Objective Current Medications Medications: Active Meds + DC'd Last 24 Hrs Hydrocodone Bitart/Acetaminophen 2 TAB Q6H PRN PRN PO Ibuprofen 600 MG Q6H PRN PRN PO Ondansetron HCl 4 MG Q6H PRN PRN PO Zolpidem Tartrate 5 MG BEDTIME PRN PRN PO Hydroxyzine HCl 25 MG Q8H PRN PRN PO (UNV) Multivi/Iron Carb/Fe Sulf/FA/Prenat 1 EA DAILY PO Bupivacaine HCl/Dextrose 2 ML .STK-MED ONE ZCHARGE (DC) Ephedrine Sulfate 50 MG .STK-MED ONE ZCHARGE (DC) Lidocaine/Epinephrine 40 ML .STK-MED ONE ZCHARGE (DC) Oxytocin 30 UNITS .STK-MED ONE ZCHARGE (DC) Docusate Sodium 100 MG 0900,2100 PO Hydroxyzine HCl 25 MG ANES Q3H PRN PRN PO Ketorolac Tromethamine 15 MG ANES Q6H PRN PRN IM Ketorolac Tromethamine 30 MG ANES Q6H PRN PRN IV Meperidine HCl 250 ML ANES ASDIR EPIDURAL (CKD) Nalbuphine HCl 10 MG ANES Q3H PRN PRN IM Naloxone HCl 0.4 MG ANES ASDIR PRN IV Al Hydrox/Mg Hydrox/Simethicone 30 ML ASDIR PRN PO Cetylpyridinium Chloride 1 JANETH ASDIR PRN MM Dextrose/Lactated Ringer's 1,000 ML ASDIR IV Diphenhydramine HCl 25 MG Q6H PRN PRN PO Diphtheria/Pertussis/Tetanus Vacc 0.5 ML BEFORE DISCHG IM Hydrocortisone/Pramoxine 1 GM ASDIR PRN RECTAL (CKD) Magnesium Hydroxide 30 ML BID PRN PRN PO Measles/Mumps/Rubella Vaccine Live 1 VIAL BEFORE DISCHG PRN SUBQ Methylergonovine Maleate 0.2 MG ASDIR PRN IM Misoprostol 1,000 MCG ASDIR PRN RECTAL Misoprostol 1,000 MCG ASDIR PRN PO (CKD) Neomycin/Polymyxin/Bacitracin 1 APPLIC ASDIR TOPICAL (CKD) Oxytocin 500 ML ASDIR IV (DC) Polyethylene Glycol 17 GM DAILY PRN PRN PO Simethicone 80 MG PC HS PRN PRN PO Hydroxyzine HCl 25 MG PACU ASDIR PRN PRN IM (DC) Ketorolac Tromethamine 30 MG PACU ONCE PRN IV (DC) Meperidine HCl 250 ML PACU EPIDURAL (DC) Naloxone HCl 0.4 MG PACU ONCE PRN PRN IV (DC) Naloxone HCl 0.05 MG PACU ASDIR PRN PRN IV (DC) Ondansetron HCl 4 MG PACU ONCE PRN IV (DC) Promethazine HCl 12.5 MG PACU ONCE PRN IM (DC) Midazolam HCl 0 .STK-MED ONE .ROUTE (DC) Promethazine HCl 0 .STK-MED ONE .ROUTE (DC) Dexamethasone Sodium Phosphate 0 .STK-MED ONE .ROUTE (DC) Fentanyl Citrate 0 .STK-MED ONE .ROUTE (DC) Ondansetron HCl 0 .STK-MED ONE .ROUTE (DC) Pharmacy Profile Note 0 .STK-MED ONE .ROUTE (DC) Dextrose/Lactated Ringer's 1,000 ML ASDIR IV (DC) Famotidine 20 MG ASDIR PRN IV (DC) Lactated Ringer's 2,000 ML ASDIR PRN IV (DC) Omeprazole/Sodium Bicarbonate 2 CAP ASDIR PRN PO (DC) Oxytocin 500 ML ONCE ONE IV (DC) Physical Exam VS/I O: Last Documented: Result Date Time B/P 105/67 07/06 0338 Temp 98.3 07/06 0338 Pulse 70 07/06 0338 Resp 18 07/06 0338 Pulse Ox 100 07/05 1330 B/P Mean 77.0 07/05 1300 Vital Signs Date Temp Pulse Resp B/P B/P Mean Pulse Ox FiO2 07/05-07/06 97.5-98.9 68-111 16-18 99-112/47-68 75.0-79.0 99-100 24 hour I O ending at 0700: 07/06 0700 07/05 1900 Intake Total 2450.00 Output Total 1300.00 920.00 Balance -1300.00 1530.00 Intake, Other 2450.00 Output, Other 1300.00 920.00 Patient 135 lb Weight Patient Weight Weight (lb): 135 Weight (oz): Weight (kg): 61.235 General Appearance: alert, awake, no acute distress, conversant, face symmetrical, MS normal, oriented Wound/incision: Location: Pfannenstiel Site condition: dressing clean dry, dressing intact HEENT: moist mucosal membranes, normocephalic Neck; full range of motion, supple Cardiovascular: regular rate and rhythm Respiratory: no distress, no tenderness, aerating well, symmetric expansion Abdomen: non-tender, soft Genitourinary: no bladder distention, no flank pain, no healy Extremities: no calf tnederness, no edema Neuro/PIECE WORK INSPECTOR: alert, oriented x 3, normal speech Skin: dry, no rash Psychiatry: normal affect, normal judgment/insight, normal mood Uterus: normal Fundus: below umbilicus, non-tender, firm Diagnosis, Assessment Plan Free Text A P: 29 y/o s/p repeat LTCS, uterine window 1) POD#1: AVSS 2) Anemia: Will monitor vitals and symptoms closely. Pt understands that she is not to get up out of bed without assistance. If she becomes more symptomatic, will give 1-2 units PRBCs. Otherwise, will monitor closely and repeat CBC in am. Will start PO iron. 3) Breast. 4) Incision healing well, FF<Umb. 5) Adv diet. 6) Healy removed, voiding trial underway. 7) TDaP. at 0954 [facility] #:[id number] END OF REPORT [facility] 2019-07-05 11:14:00 [id number] [facility] [place] [id number] PATIENT NAME: RUSH JO ADMIT DATE: 07/05/19 ACCOUNT NO: [id number] ROOM NO: [facility] AGE: 29 SEX: F ADMITTING PHYSICIAN: Yehuda Eaton MD ATTENDING PHYSICIAN: Yehuda Eaton MD OPERATION DATE: 07/05/2019 PREOPERATIVE DIAGNOSES: A 36 weeks' intrauterine , prior section x2, contractions with cervical change, labor, concern for uterine rupture. POSTOPERATIVE DIAGNOSES: A 36 weeks' intrauterine , prior section x2, contractions with cervical change, labor, concern for uterine rupture with uterine window noted. PROCEDURE: Repeat LTCS SURGEON: Yehuda Eaton MD SWITCHBOARD TROUBLESHOOTER: Minerva Veras SA. ANESTHESIA: Combined spinal epidural. ESTIMATED BLOOD LOSS: 700 mL. URINE OUTPUT: 120 mL. INTRAVENOUS FLUIDS: 2200 mL. FINDINGS: Female , cephalic presentation, Apgars 8 and 9, weight 6 pounds 7 ounces. Otherwise, normal uterus, ovaries, and tubes with adhesions between the mesentery and the left fundal lateral aspect of the uterus. COMPLICATIONS: None. COUNTS: Sponge, lap, needle count correct x2. PATHOLOGY: Placenta. PROCEDURE IN DETAIL: After the risks, benefits, and alternatives have been explained to the patient with risks including infection, bleeding, trauma to surrounding tissue, informed consent was obtained. The patient's questions were answered. She was then brought back to the operating room, prepped and draped in the dorsal supine position with a leftward tilt. A Pfannenstiel skin incision was made through the patient's prior incision with the scalpel. This was carried down to the fascia and the fascia was scored. This was extended laterally with the Melchor scissors. The superior aspect of the PATIENT NAME: RUSH JO fascial incision was grasped with 3 Huy clamps, tented upwards, and the rectus muscles were dissected off with the Melchor scissors. The inferior aspect of the fascial incision was dissected off in identical fashion. The rectus muscles were in the midline. The peritoneum was then identified, entered bluntly, and this was extended superiorly and inferiorly with excellent visualization of the bladder. The bladder blade was placed and a bladder flap was not made due to noting a large uterine window in the lower uterine segment. I then made a transverse incision superior to the window with the scalpel and I extended this by gently using the De La Rosa maneuver, I then performed amniotomy and noted clear fluid. I then gently directed the infant's head up to the hysterotomy site and easily delivered the anterior, posterior shoulders with no nuchal noted. Audible cry was appreciated. I bulb suctioned and then clamped and cut the umbilical cord and then passed the baby over to RN after showing baby to mom and dad. I then delivered the placenta manually intact 3-vessel cord and passed this off the field. I then exteriorized the patient's uterus from her abdomen and wiped the cavity clear of all clots and debris with moist lap x2. I then closed the hysterotomy in 2 layers with 0 Vicryl, first in a running locking stitch, second in a running imbricating stitch. Excellent uterine tone was noted with 30 milliunits of IV Pitocin. I then returned the patient's uterus to her abdomen, wiped the gutters, cleared of all clots and debris with a moist lap x2. I reinspected the hysterotomy site and ensured excellent uterine tone was achieved. I then closed the peritoneum with 3-0 Vicryl in a running stitch. I then reapproximated rectus muscles with the same suture. I irrigated. I closed the fascia with 0 Vicryl in one running stitch. I again irrigated. I reapproximated the adipose tissue with 3-0 Vicryl in a running stitch and then closed the skin with 4-0 Monocryl in a running subcuticular stitch on a Kane needle. Sponge, lap, needle count correct x2. Note: My call center assistant provided a necessary service in assisting with the surgery, and this procedure could not have been done safely without an call center assistant. Dictated By: Yehuda Eaton MD WT: OP:[id number]/[id number]/NTS Conf#: [id number]/DID#: [id number] Authenticated and Edited by Yehuda Eaton MD On 07/17/19 8:27:12 AM at 0829 PATIENT NAME: RUSH JO [facility] 2019-07-05 11:07:00 [facility] ([facility]) OB Delivery Note REPORT#:[id number] REPORT STATUS: Signed DATE:07/05/19 TIME: 1107 PATIENT: RUSH JO UNIT #: [id number] ROOM/BED: [address] : 91 AGE: 29 SEX: F ATTEND: Yehuda Eaton MD ADM AUTHOR: Yehuda Eaton MD * ALL edits or amendments must be made on the electronic/computer document * OB Delivery Nursing Documentation Review Nursing data: The data set between the solid lines has been imported from nursing documentation. Any exceptions have been noted below under Provider comments. _ ROM date: ROM time: Membranes rupture method: Amniotic fluid color: Amniotic fluid amount: EGA (weeks/days): 36.2 EGA at admit (weeks): EGA at delivery (weeks): Steroids prior to arrival: Antibiotic prophylaxis given: evaluation at delivery: Delivery date A: Delivery time infant A: Birthweight (gm) A: Weight (lb) A: Weight (oz) A: Gender infant A: 1 minute A: 5 minutes A: 10 minutes infant A: Cord pH obtained A: Vacuum time infant A: Vacuum # pulls infant A: Vacuum # popoffs infant A: __ Provider comments on imported nursing data: [] Pre-delivery Admission EGA (wks/days): 36 weeks General VS: Last Documented: Result Date Time B/P Mean 83.0 07/05 803 B/P 111/64 07/05 803 Temp 98.6 07/05 803 Pulse 93 07/05 803 Resp 17 07/05 803 Membranes: AROM ROM date: 07/05/19 Amniotic fluid: clear Labor onset: Date: 07/05/19 Baby A Information Baby A information Delivery date: 07/05/19 status: live born Wt of baby (lbs/oz): 6/7 Gender: female 1 minute: 8 5 minutes: 9 Presentation: vertex Anomalies: None ABG details Baby A Cord blood gases: not collected Nuchal cord Baby A Nuchal cord: no Anomalies: None Delivery section Abdominal incision: Pfannenstiel Primary indication: prior uterine surg/perf Priority: indicated (add on) Antibiotic prior to incision: 1 dose )(SCDs applied activated: Yes Incision: low transverse Hemorrhage: no Uterine scar: incidental window Consent: indication discussed, questions answered, pt consent to op delivery Mother's condition: mother stable Infant's condition: stable in room Op/Inv Proc Note - Brief )( Procedure(s) performed: repeat low transverse c/s )( Primary Surgeon: Yehuda Eaton )( Steel Wool Machine Operator(s): Minerva Yin )( Pre-procedure diagnosis: prior c/s x 2. 36 weeks IUP, labor, concern for uterine rutpure )( Post-procedure diagnosis: Same, uterine window noted )(Technique/Procedure: See dictation Anesthesia: combined spinal/epidural )( Estimated blood loss (ml): 700 )( Specimen removed/altered: Placenta )( Complications: none Fluids: 2200 Urine output: 120 )( Finding(s): See dictation Condition: stable Dictation number: [id number] at 1114 RPT #:[id number] END OF REPORT [facility] 2019-07-05 08:47:00 [facility] ([facility]) OB Admission / H P REPORT#:[id number] REPORT STATUS: Signed DATE:07/05/19 TIME: 08 PATIENT: RUSH JO UNIT #: [id number] ROOM/BED: [facility] : 91 AGE: 29 SEX: F ATTEND: Yehuda Eaton MD ADM AUTHOR: Yehuda Eaton MD * ALL edits or amendments must be made on the electronic/computer document * OB Admission H P Hx Nursing Documentation Review Nursing data: The data set between the solid lines has been imported from nursing documentation. Any exceptions have been noted below under Provider comments. Current data Steroids prior to arrival: ROM date: ROM time: EGA (weeks/days): 36.2 EGA at admit (weeks): EDC date: 07/26/69 Prior history : 4 Para: 2 Term: : Abortions spontaneous: Abortions induced: Living children: Ectopic: Stillbirths: Live births: deaths: Number of previous C/S: Reported maternal labs/data Blood type: Rh type: Rubella: Hepatitis B: HIV exposure test: VDRL: Group B beta strep: Rho(D) immune globulin this preg: Monitor mode - UA: Feeding preference: Provider comments on imported nursing data: [] Chief complaint: uterine contractions HPI: 29 y/o at 36 2/7 weeks, [facility] with complaint of ctxs, and burning, tearing pain beneath her incision. She notes that the pain is constant, and has been building. She has been having contractions off and on for the past several days, and she was seen in clinic on Mon, and it was noted that her cervix was thick and closed. She denies LoF/VB, and notes that her baby is moving well. history: : 4 Term: 2 : 0 Abortus: 1 Living children: 2 Complications (prev preg): none Previous : low uterine trans incis Number of prev : 2 Current : EDC: 07/31/19 Admission EGA (wks/days): 36 weeks EGA based on: LMP, ultrasound, 1st trimester Conditions of : previous uterine incision Past medical history: denies PMH Past surgical history: Social history: employed, , no alcohol use, no tobacco use, no drug use Medications: Home Medications: PNV/FE FUM/FA ( MULTIVITAMIN) 1 TAB PO DAILY Allergies Coded Allergies: No Known Allergies (06/13/19) Review of Systems Constitutional: Denies: chills, fatigue, fever, generalized weakness, lethargy, malaise, recent wt loss, other. Skin: Denies: abrasion, bruising, contusion, diaphoresis, ecchymosis, itching, laceration, rash, swelling, other. Allergy/Immun: Denies: allergic reaction, anaphylaxis, hives, itching, rhinorrhea, sneezing, other. Eyes: Denies: redness, discharge, visual loss/blurred, itching, diplopia, eye pain, photophobia, swelling, other. ENT: Denies: ear drainage, ear ringing, earache, hearing loss, mouth pain, nasal congestion, nose bleeding, sinus problem, sore throat, throat pain, throat swelling, tongue pain, tongue swelling, toothache, voice change, other. Respiratory: Denies: FARIA (dyspnea on exertion), hemoptysis, non productive cough, parox nocturnal dyspnea, pleurisy, pleuritic pain, pneumonia, productive cough (sputum ), SOB, wheezing, other. Cardiovascular: Denies: chest pain, FARIA (dyspnea on exertion), edema, orthopnea, palpitations, parox nocturnal dyspnea, other. GI: Reports: abdominal pain. Denies: anorexia, constipation, diarrhea, dysphagia, GERD, hematemesis, hematochezia, hiatal hernia, melena, nausea, rectal pain, vomiting, other. : Reports: , previous pregnancies. Denies: dysuria, flank pain, frequency , hematuria, nocturia, pelvic pain, urgency, urinary retention, vaginal bleeding , vaginal discharge, other. Musculoskeletal: Denies: arthritis, extremity pain, extremity swelling, joint pain, joint swelling, lumbar pain, myalgias, neck pain, thoracic pain, other. Heme: Denies: adenopathy, bleeding, bruising, petechiae, other. Endocrine: Denies: cold intolerance, heat intolerance, polydipsia, polyphagia, polyuria, weight gain, weight loss, other. Neuro: Denies: bladder dysfunction, bowel dysfunction, change in LOC, confusion, dizziness, focal weakness, gait problem, headache, lightheaded, numbness, seizure, slurred speech, spinning sensation, syncope, unable to speak, vision change, weakness, other. Psych: Denies: agitation, anxiety, auditory hallucination, change in mental status, confusion, delusional, depression, homicidal ideation, hostile, insomnia, stress , suicidal ideation, visual hallucination, other. Objective General VS: Patient Weight Weight (lb): 135 Weight (oz): Weight (kg): 61.235 Physical Exam HEENT: normocephalic w/o injury Cardiac: regular rate and rhythm Lungs: clear to auscultation Neuro: Exam: alert, oriented x3, normal speech Abdomen: gravid Uterine activity: Monitor: toco Pelvic exam: Pelvis clinically adequate: yes, inlet appears appropriate, pubic bone config appropr, no midpelvic contraction Vulvar lesions: none, no evidence herpetic les, no evidence of other STD Vagina: normal, non-septated, w/o apparent lesions Uterus size in weeks: 37 Exam: soft, non-tender, approp size for gest age Cervical/ exam: Dilatation (cm): 1 Effacement (%): 50 Est wt (gms): 3200 Suspected macrosomia: No station: - 2 presentation: cephalic Membranes: Membranes: Intact Lower extremities: Edema: none Diagnosis, Assessment Plan Diagnosis, Assessment Plan Free Text A P: 29 y/o at 36 2/7 weeks, prior x 2, presents with abdominal pain at incision site 1) FHTs cat I 2) Pain at incision site: Given pt's history of two prior c-sections, will proceed with repeat , due to concern for uterine rupture. Discussed risks/alternatives/benefits with pt, and patient consents to and agrees with the plan of care. at 0854 RPT #:[id number] END OF REPORT [facility] 2019-06-24 21:14:00 [id number] [facility] [address] [address] PATIENT NAME: RUSH JO ADMIT DATE: 06/24/19 ACCOUNT NO: [id number] ROOM NO: AGE: 29 SEX: F ADMITTING PHYSICIAN: ATTENDING PHYSICIAN: Yehuda Eaton MD TRIAGE EVALUATION: 06/24/2019 The patient seen in MAC unit per request of Dr. Sangeeta Eaton linen controller for Dr. Yehuda Eaton. HISTORY OF PRESENT ILLNESS: The patient is a 29-year-old G4, P1-1-1-2 with last menstrual period 10/24/2018, and estimated date of confinement 07/31/2019. She presented at 34 and 5/7th weeks complaining of worsening vaginal pressure, which began at about 7:00 p.m. on 06/23/2019. She denied vaginal bleeding or leakage of fluid and reported good movement. She reported contractions irregular and mild. She denied headache, vision changes, or other preeclampsia symptoms. She denies fever, chills, nausea, vomiting, diarrhea, or constipation or dysuria. Her care began with Dr. Yehuda Eaton at approximately 6 weeks' gestation. Her next visit is scheduled for 06/28/2019. Complications have included labor in mid May, she was placed on modified bed rest at that time due to contractions, though she has had no change in her cervical exam otherwise all labs and ultrasounds normal and no complications. PAST MEDICAL HISTORY: Negative. PAST SURGICAL HISTORY: section x2, with it. [place] teeth in 2009, an obstetrical D and C in July 2018. ALLERGIES: NO KNOWN DRUG ALLERGIES. MEDICATIONS: vitamins and Phenergan as needed, but seldom in the recent past. OBSTETRICAL HISTORY: In 2007, a 36 week section for failure to progress after induction for preeclampsia. She was delivered of a female weighing 6 pounds in 2017, 39-week repeat without trial of labor, delivered of a female infant weighing 6 pounds 8 ounces. was remarkable for severe nausea and vomiting throughout in July 2018 first trimester spontaneous , requiring D and C at approximately 9 weeks' gestation. GYNECOLOGIC HISTORY: Menarche at age 15 with regular monthly cycles lasting 4 days, moderate in amount with minimal cramping. The patient denies history of STDs and reports all Pap smears normal. SOCIAL HISTORY: One-half pack per day tobacco use for approximately 11 years. She quit one year ago. Also, occasional prepregnancy alcohol use. The patient quit in 2015. The patient denies history of illicit drugs. She lives with her PATIENT NAME: RUSH JO boyfriend, a 29-year-old healthy male and her 2 daughters. She works as a [employer] at [employer]. 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 Therefore, she has been on the modified bed rest. Recently no chemical exposures at work. FAMILY HISTORY: Father with cirrhosis. He was a drinker. Mother without health problems. Maternal grandmother with hypertension. Maternal grandfather with dementia. Paternal grandmother without health problems. Paternal grandfather with lung cancer. He was a smoker. The patient has a half-brother and half-sister both living and healthy and her 2 daughters are reported as healthy. She denies history of mental retardation or defects in her family or her partner's family. REVIEW OF SYSTEMS: A 10-point review of systems is negative except as stated above. PHYSICAL EXAMINATION: GENERAL: The patient is a well-nourished, well-developed female, in no acute distress, lying on the triage stretcher in MAC unit. VITAL SIGNS: Height 5 feet 0 inches, weight prior to the 97 pounds and at most recent visit to clinic 132 pounds, blood pressure 110/67, pulse 90, respirations 18, and temperature 98.7. HEAD AND NECK: Within normal limits without lymphadenopathy or thyromegaly. CHEST: Clear to auscultation bilaterally. HEART: With regular rate and rhythm. BREASTS: Deferred. ABDOMEN: Soft, nontender, gravid with a fundal height of 30 cm. PELVIC: Cervix is closed, 50% effaced, and -3 station with cephalic presentation. On serial exams after walking, cervix is unchanged. EXTREMITIES: Without edema. Bilateral patellar reflexes, 2+. NEUROLOGIC: Nonfocal. The patient is awake, alert, and oriented x3. LABORATORY DATA: Urinalysis was ordered by Dr. Sangeeta Eaton and was reported as negative for all parameters with 0 to 2 RBCs, 0 to 2 WBCs, and rare epithelial cells. NST is reactive with baseline heart tones in the 140s multiple 15 x 15 accelerations, no decelerations, and occasional contraction. ASSESSMENT AND PLAN: This is a 29-year-old G4, P1-1-1-2 at 34-5/7th weeks complaining of worsening vaginal pressure and occasional cramps, but no evidence of labor. She is now discharged home in stable condition with reassuring status. She is to follow up with Dr. Eaton as scheduled. She is to drink greater than 100 ounces of water daily and eat frequent small meals. She is to call or return for vaginal bleeding, leakage of fluid, decreased movement, or worsening contractions also for headache, not resolving with Tylenol, vision changes, right upper quadrant pain, the hand and face swelling or other concerns other symptoms of preeclampsia instructions are given verbally by M.D. The patient is encouraged to obtain a belt to help with the vaginal pressure. She should wear it 24/, except when showering. Dictated By: Sadie aHstings MD WT: HP:KE/KALLIE/NTS PATIENT NAME: RUSH JO Conf#: [id number]/DID#: [id number] Authenticated and Edited by Sadie Hastings MD On 07/04/19 9:18:28 PM at 2121 PATIENT NAME: RUSH JO [facility] 2019-06-13 03:28:00 [facility] ([facility]) EMERGENCY PROVIDER REPORT REPORT#:[id number] REPORT STATUS: Signed DATE:06/13/19 TIME: 0328 PATIENT: RUSH JO UNIT #: [id number] ROOM/BED: AGE: 29 SEX: F PCP PHYS: Yehuda Eaton MD SERVICE AUTHOR: Himanshu Alston III, MD * ALL edits or amendments must be made on the electronic/computer document * SHELL History Nursing Documentation Review Nursing data: [facility] ER 29 year old female SAB 1 @ 33.1 WKS CC Contractions HPI She complains of the onset of moderately painful uterine contractions since about 10 am on 06/12. Not leaking fluid, no vaginal bleeding,endorses movments. The contractions got stronger at about 3 pm and were coming every 8 minutes. She came in for evaluation. Here in triage she was noted to be toñito. Nursing staff contacted Dr Eaton. Orders given included IV hydration, BPP,pain meds and sq terb. Her contractions did stop and her bpp returned 02/28 with a normal MINAL. Dr Eaton has now cleared her for discharge pending evaluation by the HOME HEALTH AIDE CAREGIVER Hospitalist. PMH NKDA SAB 1 c/section PIH at 37 weeks c/section repeat at 39 wks SAB with d and c PMH denied PSH c/section X 2 MEDS none FMH Positive for diabetes SH No smoke, no etoh, no drugs ROS No shortness of breath, no chest pain, no nausea or vomiting, no abdominal pain, no vaginal ] bleeding, not leaking amniotic fluid, endorses movements, contractions have now stopped, no dysuria Medications: Home Medications: Medication Dose/Rte/Freq Days Qty Entered Last Max Daily Dose Reviewed PNV/FE FUM/FA 1 TAB PO DAILY 03/22/19 ( MULTIVITAMIN) 0222 Strength: 1 TAB TAB Current Hospital Medications: Autonomic Drugs Sig/Neil Start time Last Medication Dose Route Stop Time Status Admin Terbutaline Sulfate 0.25 MG Q20M PRN 06/13 0130 DCD 06/13 (TERBUTALINE 1 MG/ML SUBQ 0155 1 ML AMP) Terbutaline Sulfate 0 .STK-MED ONE 06/13 0125 DC (TERBUTALINE 1 MG/ML .ROUTE 1 ML AMP) Central Nervous System Agents Sig/Neil Start time Last Medication Dose Route Stop Time Status Admin Meperidine HCl 50 MG ONCE 06/13 0030 DCD 06/13 (MEPERIDINE HCL 50 IV 06/13 2359 0058 MG SYR) Promethazine HCl 25 MG ONCE ONE 06/13 0030 DC 06/13 (PROMETHAZINE HCL 25 IM 06/13 0031 0059 MG) Electrolytic, Caloric, And Tiara Sig/Neil Start time Last Medication Dose Route Stop Time Status Admin Dextrose/Lactated 1,000 ML BOLUS ONCE ONE 06/12 2130 DC Ringer's IV 06/12 2229 (DEXTROSE 5% IN LACTATED RINGERS 1000 ML) Allergies Coded Allergies: No Known Allergies (06/13/19) Objective General VS: Last Documented: Result Date Time B/P Mean 72.0 06/13 149 B/P 99/57 06/13 014 Pulse 106 06/13 149 Temp 98.2 06/12 1855 Resp 18 06/12 1855 Vital Signs Date Temp Pulse Resp B/P B/P Mean Pulse Ox FiO2 06/12-06/13 98.2 79-106 18 99-106/57-69 72.0-83.0 Patient Weight Weight (lb): Weight (oz): Weight (kg): 59.711862 Allergies Allergy Severity Reaction Updated Coded No Known Allergies 08/24/18 Vital Signs: Date Time Temp Pulse Resp B/P B/P Pulse O2 O2 Flow FiO2 Mean Ox Delivery Rate 06/13 149 72.0 06/13 149 106 99/57 06/12 1855 83.0 06/12 1855 98.2 79 18 106/69 No acute distress, alert, normal affect Chest clear to auscultation CVR RRR Ab gravid and nontender SVE by nursing staff closed/50% effaced/ -3 station vertex Ext no pathological pretibial edema, normal reflexes, no calf tenderness TOCO not toñito at the time of my exam prior to discharge FHT category one, accelerations are present Laboratory Tests: 06/12 1925 Miscellaneous Fibronectin NEGATIVE Urines Urine Color (YELLOW) STRAW Urine Appearance (CLEAR) CLEAR Urine pH (5 - 9) 7.0 Ur Specific Welsh (1.001 - 1.035) 1.008 Urine Protein (NEG) NEGATIVE Urine Glucose (UA) (NEG) NEGATIVE Urine Ketones (NEG) TRACE H Urine Blood (NEG) NEG Urine Nitrite (NEG) NEG Urine Bilirubin (NEG) NEGATIVE Urine Urobilinogen (NEG mg/dL) NEGATIVE Ur Leukocyte Esterase (NEG) NEG Urine RBC (NONE SEEN #/hpf) 0-2 Urine WBC (NONE SEEN #/hpf) 0-2 Ur Epithelial Cells (RARE - FEW #/HPF) RARE Urine Bacteria (RARE - FEW /HPF) NEGATIVE Recent Impressions: ULTRASOUND - US PREG UT TRANSVAGINAL 06/12 1930 Report Impression - Status: SIGNED Entered: 06/12/20192105 IMPRESSION: 1. There is a single live intrauterine gestation in vertex presentation. 2. Normal biophysical profile score of 8/8. 3. Normal amniotic fluid index of 13.6 cm. 4. There is no placenta previa or placental abruption. 5. The cervix is closed and the cervical length measures between 2.2 and 3.2 cm. Impression By: Marvin Ham, DO ULTRASOUND - US FET BIO PH KS W/O NST 06/12 1930 Report Impression - Status: SIGNED Entered: 06/12/20192105 IMPRESSION: 1. There is a single live intrauterine gestation in vertex presentation. 2. Normal biophysical profile score of 8/8. 3. Normal amniotic fluid index of 13.6 cm. 4. There is no placenta previa or placental abruption. 5. The cervix is closed and the cervical length measures between 2.2 and 3.2 cm. Impression By: Marvin Ham, DO Result Findings/Data: Laboratory Tests: 06/12 1925 Miscellaneous Fibronectin NEGATIVE Urines Urine Color (YELLOW) STRAW Urine Appearance (CLEAR) CLEAR Urine pH (5 - 9) 7.0 Ur Specific Welsh (1.001 - 1.035) 1.008 Urine Protein (NEG) NEGATIVE Urine Glucose (UA) (NEG) NEGATIVE Urine Ketones (NEG) TRACE H Urine Blood (NEG) NEG Urine Nitrite (NEG) NEG Urine Bilirubin (NEG) NEGATIVE Urine Urobilinogen (NEG mg/dL) NEGATIVE Ur Leukocyte Esterase (NEG) NEG Urine RBC (NONE SEEN #/hpf) 0-2 Urine WBC (NONE SEEN #/hpf) 0-2 Ur Epithelial Cells (RARE - FEW #/HPF) RARE Urine Bacteria (RARE - FEW /HPF) NEGATIVE Recent Impressions: ULTRASOUND - US PREG UT TRANSVAGINAL 06/12 1930 Report Impression - Status: SIGNED Entered: 06/12/20192105 IMPRESSION: 1. There is a single live intrauterine gestation in vertex presentation. 2. Normal biophysical profile score of 8/8. 3. Normal amniotic fluid index of 13.6 cm. 4. There is no placenta previa or placental abruption. 5. The cervix is closed and the cervical length measures between 2.2 and 3.2 cm. Impression By: Marvin Ham, DO ULTRASOUND - US FET BIO PH KS W/O NST 06/12 1930 Report Impression - Status: SIGNED Entered: 06/12/20192105 IMPRESSION: 1. There is a single live intrauterine gestation in vertex presentation. 2. Normal biophysical profile score of 8/8. 3. Normal amniotic fluid index of 13.6 cm. 4. There is no placenta previa or placental abruption. 5. The cervix is closed and the cervical length measures between 2.2 and 3.2 cm. Impression By: [email or web address] - Nixon Ham, Diagnosis, Assessment Plan Diagnosis, Assessment Plan Free Text A P: Impression IUP at 33.1 wks contractions responded to IV hydration, sq terb reassuring heart tones , bpp 8/8 not in labor, ffn was negative Previous c/section Plan Dr Eaton has cleared her for discharge. I agree with discharge. Labor precautions. F/U in the office jr at 0630 RPT #:[id number] END OF REPORT [facility] 2019-03-22 02:27:00 [facility] ([facility]) EMERGENCY PROVIDER REPORT REPORT#:[id number] REPORT STATUS: Signed DATE:03/22/19 TIME: 226 PATIENT: RUSH JO UNIT #: [id number] ROOM/BED: AGE: 28 SEX: F PCP PHYS: Yehuda Eaton MD SERVICE AUTHOR: Omega Anand MD * ALL edits or amendments must be made on the electronic/computer document * HPI-General Illness Free Text HPI Notes Free Text HPI Notes 28 yrs old female 21 wk c/o sore throat, coughing. Patient family has uri, sore throat. No muffle voice sound. No distress. No chest pain. General Initial Greet Date/Time 03/21/19 4343 Presentation Chief Complaint Sore throat Review of Systems ROS Statements All systems rev neg except as marked. Complete sys rev neg except as marked. Past Medical History - Adult Stated Complaint SHORT OF BREATH, FEELING FAINT - 21 WKS PREG Allergies Coded Allergies: No Known Allergies (08/24/18) Home Medications Reported Medications PNV/FE FUM/FA ( MULTIVITAMIN) 1 TAB PO DAILY Review of Nursing Notes Rev avail, and agree Past Medical History: Denies: Anemia. Additional Medical History pre-eclampsia Past Surgical History: Reports: . Family History: Denies: Anemia. Alcohol Use Denies EtOH use Drug Use Denies recreational drugs Smoking status for patients 13 years old or older: Never Smoker Physical Exam Vital Signs Vital Signs First Documented: Result Date Time Pulse Ox 100 03/22 0001 B/P 112/74 03/22 0001 B/P Mean 86 03/22 0001 Temp 36.7 03/22 0001 Pulse 87 03/22 0001 Resp 16 03/22 0001 O2 Delivery Room air 03/22 0130 Last Documented: Result Date Time Pulse Ox 100 03/22 0245 B/P 103/59 03/22 0245 B/P Mean 73 03/22 0245 O2 Delivery Room air 03/22 0245 Temp 36.7 03/22 0245 Pulse 83 03/22 0245 Resp 17 03/22 0245 Review of Vital Signs Reviewed Physical Exam General/Const General/Const Awake, Alert, Well appearing MS Head Head Normocephalic Eyes Eyes PERRL Ears/Nose/Throat Ears/Nose/Throat Airway patent, Mucous membranes moist, Pharynx NL MS Neck Neck Supple, No meningismus, Full range of motion, No swelling, Non-tender, No masses Resp/Chest Respiratory/Chest Breath sounds NL, Breath sounds = bilat, No respiratory distress, No rales, No rhonchi, No wheezing Resp Distress/Stridor Negative: Resp distress mild, Resp distress moderate. Diminished Breath Sounds Negative: Decreased R, Decreased bilateral. Wheezing/Retractions Negative: Wheezing expiratory, Wheezing inspiratory. Rales/Rhonchi Negative: Rales L base, Rales R up to 1/3. Cardiovascular Cardiovascular Heart rate NL, Regular rhythm, Heart sounds NL, Cap refill not delayed, Peripheral circulation NL Abdomen/GI Abdomen/GI Soft, Non-tender, No guarding, No rebound MS Back Back Inspection NL, Painless range of motion, Non-tender, No CVA tenderness Lymphatic Lymphatic No gross adenopathy MS Upper Extrem Upper Extremity/MS Inspection NL, No swelling, Non-tender, No erythema, No deformity, Neurologic intact, Vascular intact, No clubbing/cyanosis MS Wrist/Hand Wrist/Hand Inspection NL, No swelling, No erythema, Non-tender, No deformity, Neurologic intact, Vascular intact, No clubbing/cyanosis MS Lower Extrem Lower Ext/Pelvis/MS Inspection NL, No swelling, Non-tender, No erythema, No deformity, Neurologic intact, Vascular intact, No edema MS Ankle/Foot Ankle/Foot Inspection NL, No swelling, No erythema, Non-tender, No deformity, Neurologic intact, Vascular intact, No edema Skin Skin Color NL, Warm, Dry, Turgor NL Neurologic Neurologic Oriented X3, Speech NL, No motor deficits, No sensory deficits Psychiatric Psychiatric Affect NL, Mood NL, Thought content NL Interpretation Diagnostics Lab Results Interpretation Results Laboratory Tests 03/22/19 0030: [Embedded Image Not Available] Laboratory Tests: 03/22 03/22 03/22 0244 0030 0030 Chemistry Sodium (135 - 145 mEq/L) 139 Potassium (3.5 - 5.0 mEq/L) 3.6 Chloride (100 - 115 mEq/L) 105 Carbon Dioxide (22 - 31 mEq/L) 24 Anion Gap (10 - 20) 13.50 BUN (7 - 18 mg/dL) 5 L Creatinine (0.5 - 1.0 mg/dL) 0.4 L Glomerular Filtr Rate (>60 ml/min) 191 Glucose (65 - 110 mg/dL) 88 Calcium (8.4 - 10.2 mg/dL) 8.3 L Magnesium (1.8 - 2.4 mg/dL) 1.5 L Total Bilirubin (0.2 - 1.0 mg/dL) 0.1 L AST (15 - 37 units/L) 16 ALT (12 - 78 units/L) 15 Total Alk Phosphatase (46 - 116 units/L) 76 Total Creatine Kinase (26 - 192 Units/L) 58 Troponin I (<0.056 ng/mL) <0.017 B-Natriuretic Peptide (0 - 100 pg/mL) 9.59 Total Protein (6.3 - 8.2 gm/dL) 6.3 Albumin (3.4 - 4.8 gm/dL) 2.8 L Lipase (73 - 393 units/L) 98 TSH (0.36 - 3.74) 1.67 Coagulation PT (10.4 - 12.4 secs) 10.4 INR 0.94 PTT (Abdi) (22 - 38 secs) 25.7 Fibrinogen (309 - 518 mg/dL) 327 D-Dimer (<255 ng/mLDDU) 506 H Hematology WBC (6.6 - 12.1 K/mm3) 11.9 RBC (3.45 - 5.01 M/mm3) 3.32 L Hgb (10.7 - 13.9 g/dL) 9.7 L Hct (32.1 - 42.1 %) 29.4 L MCV (84.1 - 94.8 fL) 89 MCH (27 - 35 pg) 29.2 MCHC (32.2 - 34.1 gm/dL) 33.0 RDW (12.4 - 16.5 %) 13.1 Plt Count (133 - 385 K/mm3) 232 MPV (9.1 - 12.7 fl) 11.0 Neut % (Auto) (56.5 - 79.4 %) 67.2 Lymph % (Auto) (14.3 - 34.3 %) 24.1 Cuming % (Auto) (5.1 - 10.4 %) 6.2 Eos % (Auto) (0.1 - 3.0 %) 1.9 Baso % (Auto) (0.1 - 1.0 %) 0.3 Neut # (Auto) (K/mm3) 8.0 Lymph # (Auto) (K/mm3) 2.9 Cuming # (Auto) (K/mm3) 0.7 Eos # (Auto) (K/mm3) 0.22 Baso # (Auto) (K/mm3) 0.0 Immature Plt Fraction (0.0 - 10.8 %) 0.0 Serology Influenza Type A (PCR) (NEGATIVE) NEGATIVE Influenza Type B (PCR) (NEGATIVE) NEGATIVE Toxicology Urine Opiates Screen (NEGATIVE) NEGATIVE Ur Barbiturates, Qual (NEGATIVE) NEGATIVE Ur Phencyclidine Scrn (NEGATIVE) NEGATIVE Ur Amphetamines Screen (NEGATIVE) NEGATIVE U Benzodiazepines Scrn (NEGATIVE) NEGATIVE Urine Cocaine Screen (NEGATIVE) NEGATIVE Urine Cannabinoids (NEGATIVE) NEGATIVE Urines Urine Color (YELLOW) YELLOW Urine Appearance (CLEAR) CLEAR Urine pH (5 - 9) 7.0 Ur Specific Welsh (1.001 - 1.035) 1.008 Urine Protein (NEGATIVE) NEGATIVE Urine Glucose (UA) (NEGATIVE) NEGATIVE Urine Ketones (NEGATIVE) NEGATIVE Urine Blood (NEGATIVE) NEGATIVE Urine Nitrite (NEGATIVE) NEGATIVE Urine Bilirubin (NEGATIVE) NEGATIVE Urine Urobilinogen (NEG mg/dL) NEGATIVE Ur Leukocyte Esterase (NEG) NEGATIVE Urine RBC (NONE SEEN #/hpf) NONE SEEN Urine WBC (NONE SEEN #/hpf) 0-2 Ur Epithelial Cells (RARE - FEW #/HPF) RARE Urine Bacteria (NONE SEEN #/hpf) RARE Urine Mucus (NONE SEEN) RARE Microbiology: Date/Time Procedure - Status Source Growth 03/22 244 Group A Streptococcus Screen (ANDREAS) - COMP THROAT 03/22 244 Group A Streptococcus Culture - COMP THROAT Recent Impressions: ULTRASOUND - US LTD 03/22 0053 Report Impression - Status: SIGNED Entered: 03/22/2019 0204 IMPRESSION: 1. Single viable intrauterine gestation in breech presentation. heart rate is 150 bpm. 2. Right ovarian cyst. SL: JORJE Impression By: Judi Camejo M.D. RADIOLOGY - XR CHEST 2 V 03/22 0120 Report Impression - Status: SIGNED Entered: 03/22/2019 0142 IMPRESSION: No acute cardiopulmonary disease seen. SL:[DALE-Nighat] Impression By: Judi Camejo M.D. Point of Care Testing Pulse Oximetry Pulse Ox % 99 On: Room air Interpretation Interpreted by fl, Pulse oximetry normal Time 0231 Re-Evaluation MDM Free Text MDM Notes Free Text MDM Notes 28 yrs old female 21 wk c/o sore throat, coughing. Patient family has uri, sore throat. Sob, coughing, sore throat. ddimer less than 575 Normal cbc, cmp, ua, lipase. Pending flu, strep Normal chest xray. Pt did not want vq scan. Pt request d/c home. ED Course Medication(s) Ordered Medication(s) Ordered: Anti-Infective Agents Sig/Neil Start time Last Medication Dose Route Stop Time Status Admin Amoxicillin 500 MG STAT STA 03/22 0225 DC PO 03/22 0226 Antihistamine Drugs Sig/Neil Start time Last Medication Dose Route Stop Time Status Admin Diphenhydramine HCl 25 MG X1ED STA 03/22 0206 DC IV 03/22 0207 Electrolytic, Caloric, And Tiara Sig/Neil Start time Last Medication Dose Route Stop Time Status Admin Sodium Chloride 1,000 ML X1ED STA 03/22 0014 DC 03/22 IV 03/22 0113 0053 Gastrointestinal Drugs Sig/Neil Start time Last Medication Dose Route Stop Time Status Admin Magnesium Oxide 400 MG STAT STA 03/22 0200 DC PO 03/22 0201 Ondansetron HCl 4 MG X1ED STA 03/22 0014 DC IV 03/22 0015 Respiratory Tract Agents Sig/Neil Start time Last Medication Dose Route Stop Time Status Admin Guaifenesin/Codeine 10 ML X1ED STA 03/22 0225 DC Phosphate PO 03/22 0226 Patient Discharge Departure Vital Signs/Condition Vital Signs First Documented: Result Date Time Pulse Ox 100 03/22 0001 B/P 112/74 03/22 0001 B/P Mean 86 03/22 0001 Temp 36.7 03/22 0001 Pulse 87 03/22 0001 Resp 16 03/22 0001 O2 Delivery Room air 03/22 0130 Last Documented: Result Date Time Pulse Ox 100 03/22 0245 B/P 103/59 03/22 0245 B/P Mean 73 03/22 0245 O2 Delivery Room air 03/22 0245 Temp 36.7 03/22 0245 Pulse 83 03/22 0245 Resp 17 03/22 0245 All vital signs available at the time of this entry have been reviewed. Condition Improved, Stable Clinical Impression Clinical Impression Primary Impression: Sore throat Secondary Impressions: Bronchitis Time of Impression 8 Disposition Decision Discharge )( Discharged to Home Yes )( Time 022 )( Date 03/22/19 Discharge/Care Plan Counseled Regarding Diagnosis, Lab results, Imaging studies, Prescriptions, Need for follow-up, When to return to ED Prescriptions tylenol amoxicillin gua Prescriptions Reviewed Risks, Benefits, Alternative treatment at 0232 RPT #:[id number] END OF REPORT [facility] 2019-03-22 00:33:00 [id number] [facility] [address], [place] [address] PATIENT NAME: RUSH JO ADMIT DATE: 03/21/19 ACCOUNT NO: [id number] ROOM NO: AGE: 28 SEX: F ADMITTING PHYSICIAN: ATTENDING PHYSICIAN: Omega Anand MD Order: [id number] Test Reason : CHEST PAIN / SOB/ 21 WKS Test Date/Time Stamp: MonMar 22 2019 00:33:07 Blood Pressure : / mmHG Vent. Rate : 084 BPM Atrial Rate : 084 BPM P-R Int : 152 ms QRS Dur : 092 ms QT Int : 388 ms P-R-T Axes : 000 165 161 degrees QTc Int : 458 ms Normal sinus rhythm Suspect arm lead reversal, interpretation assumes no reversal Right axis deviation Poor r wave progression suggestive Anterior scar, COPD or lead placement error Abnormal ECG When compared with ECG of 31-JUL-2016 18:10, QRS axis shifted right T wave inversion no longer evident in Anterior leads T wave inversion now evident in Lateral leads Confirmed by NOEMI LING MD ([id number]) on 03/26/2019 5:27:43 PM Referred By: Self Referred Confirmed by:NOEMI LING MD at 1727 PATIENT NAME: RUSH JO [facility] 2019-01-28 13:25:00 [facility] ([facility]) EMERGENCY PROVIDER REPORT REPORT#:[id number] REPORT STATUS: Signed DATE:01/28/19 TIME: 1325 PATIENT: RUSH JO UNIT #: [id number] ROOM/BED: AGE: 28 SEX: F PCP PHYS: Samantha Adkins MD SERVICE AUTHOR: Gonzalo Maria MD * ALL edits or amendments must be made on the electronic/computer document * HPI-Nausea/Vomit/Diarrhea General Date/Time Seen by Provider 01/28/19 1323 Presentation Chief Complaint Nausea, Vomiting Hx Obtained From Patient Onset Occurred Today Free Text HPI Notes Free Text HPI Notes 28 yr old female G4, at 14 weeks gestation Refers that she has been feeling nauseated since this am, non bloody, non bilous emesis x2 and unable to tolerate PO. Review of Systems ROS Statements Complete sys rev neg except as marked. Basic Review of Systems Basic ROS EYES: No redness, RESP: No SOB, CV: No chest pain, : No dysuria/ frequency, MS: No ext swelling/pain, HEM: No bleeding/bruising, PSYCH: NL thought content Past Medical History - Adult Stated Complaint HYPEREMESIS STARTING LASTNIGHT, 14 WKS Allergies Coded Allergies: No Known Allergies (08/24/18) Home Medications Reported Medications No Known Home Medications Discontinued Reported Medications AMPHETAMINE/DEXTROAMPHETAMINE SALTS (ADDERALL) Past Medical History: Denies: Anemia. Additional Medical History pre-eclampsia Past Surgical History: Reports: . Family History: Denies: Anemia. Alcohol Use Denies EtOH use Drug Use Denies recreational drugs Physical Exam Vital Signs Vital Signs First Documented: Result Date Time Pulse Ox 98 / 1324 B/P 124/78 07/ 1324 B/P Mean 93 / 1324 Temp 36.8 07/08 1324 Pulse 82 07/08 1324 Resp 18 / 1324 Last Documented: Result Date Time Pulse Ox 98 07/08 1324 B/P 124/78 / 1324 B/P Mean 93 /08 1324 Temp 36.8 07/08 1324 Pulse 82 07/08 1324 Resp 18 / 1324 Review of Vital Signs Reviewed, Vital signs normal Basic Physical Exam Basic PE HEAD: Atraumatic/NC, EYES: PERRL, conj clear, ENT: Membranes moist, NECK: Supple, RESP: No resp distress, CV: Reg rate rhythm, EXT: No gross abnormality, SKIN: No rashes, warm/dry, NEURO: alert oriented, NEURO: gross movement NL, PSYCH: NL thought content Focused PE General/Const General/Const Awake, Alert, No acute distress, Well appearing, Well developed , Well hydrated, Well nourished, Cooperative, Not toxic appearing Abdomen/GI Abdomen/GI Atraumatic, Soft, Non-tender, McBurney's non-tender, No guarding, No rebound, BS normoactive, No distention, No hernia, No palpable mass, No pulsatile mass Interpretation Diagnostics Lab Results Interpretation Results Laboratory Tests 01/28/19 1330: [Embedded Image Not Available] Laboratory Tests: 01/280 Chemistry Sodium (135 - 145 mEq/L) 135 Potassium (3.5 - 5.0 mEq/L) 3.7 Chloride (100 - 115 mEq/L) 101 Carbon Dioxide (22 - 31 mEq/L) 23 Anion Gap (10 - 20) 14.40 BUN (7 - 18 mg/dL) 8 Creatinine (0.5 - 1.0 mg/dL) 0.4 L Glomerular Filtr Rate (>60 ml/min) 191 Glucose (65 - 110 mg/dL) 77 Calcium (8.4 - 10.2 mg/dL) 9.1 Total Bilirubin (0.2 - 1.0 mg/dL) 0.4 AST (15 - 37 units/L) 17 ALT (12 - 78 units/L) 17 Total Alk Phosphatase (46 - 116 units/L) 59 Total Protein (6.3 - 8.2 gm/dL) 6.9 Albumin (3.4 - 4.8 gm/dL) 3.3 L Lipase (73 - 393 units/L) 67 L Hematology WBC (6.6 - 12.1 K/mm3) 12.9 H RBC (3.45 - 5.01 M/mm3) 4.01 Hgb (10.7 - 13.9 g/dL) 11.3 Hct (32.1 - 42.1 %) 33.5 MCV (84.1 - 94.8 fL) 84 L MCH (27 - 35 pg) 28.2 MCHC (32.2 - 34.1 gm/dL) 33.7 RDW (12.4 - 16.5 %) 18.1 H Plt Count (133 - 385 K/mm3) 251 MPV (9.1 - 12.7 fl) 11.0 Neut % (Auto) (56.5 - 79.4 %) 81.2 H Lymph % (Auto) (14.3 - 34.3 %) 14.5 Cuming % (Auto) (5.1 - 10.4 %) 3.4 L Eos % (Auto) (0.1 - 3.0 %) 0.4 Baso % (Auto) (0.1 - 1.0 %) 0.3 Neut # (Auto) (K/mm3) 10.5 Lymph # (Auto) (K/mm3) 1.9 Cuming # (Auto) (K/mm3) 0.4 Eos # (Auto) (K/mm3) 0.05 Baso # (Auto) (K/mm3) 0.0 Immature Plt Fraction (0.0 - 10.8 %) 0.0 Urines Urine Color (YELLOW) YELLOW Urine Appearance (CLEAR) Slightly-Cloudy Urine pH (5 - 9) 7.0 Ur Specific Welsh (1.001 - 1.035) 1.014 Urine Protein (NEG) NEGATIVE Urine Glucose (UA) (NEG) NEGATIVE Urine Ketones (NEG) 1+ H Urine Blood (NEG) NEG Urine Nitrite (NEG) NEG Urine Bilirubin (NEG) NEGATIVE Urine Urobilinogen (NEG mg/dL) NEGATIVE Ur Leukocyte Esterase (NEG) NEG Urine RBC (NONE SEEN #/hpf) 0-2 Urine WBC (NONE SEEN #/hpf) 0-2 Ur Epithelial Cells (RARE - FEW #/HPF) RARE Urine Mucus (NONE SEEN) RARE Point of Care Testing Pulse Oximetry Pulse Ox % 98 On: Room air Interpretation Interpreted by me, Pulse oximetry normal Re-Evaluation MDM Re-Evaluation/Progress #1 Time of Re-Eval 1439 Re-Eval Status Improved Eval Following Treatment Pt. feels better, Condition improved, Tolerating liquids, no N/, Nausea resolved Pain Re-Evaluation Denies pain ED Course Medication(s) Ordered Medication(s) Ordered: Electrolytic, Caloric, And Tiara Sig/Neil Start time Last Medication Dose Route Stop Time Status Admin Sodium Chloride 1,000 ML X1ED STA / 1357 DC 07/08 IV 07/08 1358 1400 Gastrointestinal Drugs Sig/Neil Start time Last Medication Dose Route Stop Time Status Admin Ondansetron HCl 4 MG X1ED STA 07/ 1357 DC 07/08 IV 07/08 1358 1402 Patient Discharge Departure Vital Signs/Condition Vital Signs First Documented: Result Date Time Pulse Ox 98 07/08 1324 B/P 124/78 07/08 1324 B/P Mean 93 07/08 1324 Temp 36.8 07/08 1324 Pulse 82 07/08 1324 Resp 18 07/08 1324 Last Documented: Result Date Time Pulse Ox 98 07/08 1324 B/P 124/78 07/08 1324 B/P Mean 93 07/08 1324 Temp 36.8 07/08 1324 Pulse 82 07/08 1324 Resp 18 07/08 1324 All vital signs available at the time of this entry have been reviewed. Condition Stable Clinical Impression Clinical Impression Primary Impression: Vomiting affecting Secondary Impressions: Gastroenteritis Disposition Decision Discharge )( Discharged to Home Yes )( Time 1439 )( Date 01/28/19 Discharge/Care Plan Counseled Regarding Diagnosis, Lab results, Prescriptions, Need for follow-up, When to return to ED Prescriptions zofran odt Prescriptions Reviewed Risks, Benefits, Alternative treatment Discharge Note I have spoken with the patient and/or caregivers. I have explained the patient's condition, diagnoses and treatment plan based on the information available to me at this time. I have answered the patient's and/or caregiver's questions and addressed any concerns. The patient and/or caregivers have as good an understanding of the patient's diagnosis, condition and treatment plan as can be expected at this point. The vital signs have been stable. The patient's condition is stable and appropriate for discharge from the emergency department. The patient will pursue further outpatient evaluation with the primary care physician or other designated or consulting physician as outlined in the discharge instructions. The patient and/or caregivers are agreeable to this plan of care and follow-up instructions have been explained in detail. The patient and/or caregivers have received these instructions in written format and have expressed an understanding of the discharge instructions. The patient and/or caregivers are aware that any significant change in condition or worsening of symptoms should prompt an immediate return to this or the closest emergency department or a call to 911. at 1441 RPT #:[id number] END OF REPORT [facility] 2018-12-10 12:54:00 [facility] ([facility]) EMERGENCY PROVIDER REPORT REPORT#:[id number] REPORT STATUS: Signed DATE:12/10/18 TIME: 1254 PATIENT: RUSH JO UNIT #: [id number] ROOM/BED: AGE: 28 SEX: F PCP PHYS: Samantha Adkins MD SERVICE AUTHOR: Gonzalo Maria MD * ALL edits or amendments must be made on the electronic/computer document * HPI-Nausea/Vomit/Diarrhea General Date/Time Seen by Provider 12/10/18 1242 Presentation Chief Complaint Nausea, Vomiting, patient is a G4, A1, P2 approx 6 weeks states she started with bleeding on and went to ED and was told possibly miscarrying. States she has had nausea and vomiting, unable to tolerate PO and has lost 8 lbs. Hx Obtained From Patient Onset Occurred Days ago Review of Systems ROS Statements Complete sys rev neg except as marked. Basic Review of Systems Basic ROS EYES: No redness, RESP: No SOB, CV: No chest pain, : No dysuria/ frequency, MS: No ext swelling/pain, PSYCH: NL thought content Focused Review of Systems GI Reports: Nausea, Vomiting. Past Medical History - Adult Stated Complaint PT STATES "I'VE BEEN VOMITING" Allergies Coded Allergies: No Known Allergies (08/24/18) Home Medications Reported Medications AMPHETAMINE/DEXTROAMPHETAMINE SALTS (ADDERALL) Review of Nursing Notes Rev avail, and agree Past Medical History: Denies: Anemia. Additional Medical History pre-eclampsia Past Surgical History: Reports: . Family History: Denies: Anemia. Alcohol Use Denies EtOH use Drug Use Denies recreational drugs Smoking status for patients 13 years old or older: Never Smoker Physical Exam Vital Signs Vital Signs First Documented: Result Date Time Pulse Ox 100 12/10 1242 B/P 114/74 12/10 1242 B/P Mean 87 12/10 1242 O2 Delivery Room air 12/10 1242 Temp 37.1 12/10 1242 Pulse 84 12/10 1242 Resp 18 12/10 1242 Last Documented: Result Date Time Pulse Ox 100 12/10 1452 B/P 113/65 12/10 1452 B/P Mean 81 12/10 1452 O2 Delivery Room air 12/10 1452 Temp 37.1 12/10 1452 Pulse 80 12/10 1452 Resp 18 12/10 1452 Review of Vital Signs Reviewed, Vital signs normal Basic Physical Exam Basic PE HEAD: Atraumatic/NC, EYES: PERRL, conj clear, ENT: Membranes moist, NECK: Supple, RESP: No resp distress, CV: Reg rate rhythm, EXT: No gross abnormality, SKIN: No rashes, warm/dry, NEURO: alert oriented, NEURO: gross movement NL, PSYCH: NL thought content Focused PE General/Const General/Const Awake, Alert, No acute distress, Well appearing, Well developed , Well hydrated, Well nourished, Cooperative, Not toxic appearing Abdomen/GI Abdomen/GI Atraumatic, Soft, Non-tender, McBurney's non-tender, No guarding, No rebound, BS normoactive, No distention, No hernia, No palpable mass, No pulsatile mass Interpretation Diagnostics Lab Results Interpretation Results Laboratory Tests 12/10/18 1308: [Embedded Image Not Available] Laboratory Tests: 12/10 12/10 1308 1252 Chemistry Sodium (135 - 145 mEq/L) 139 Potassium (3.5 - 5.0 mEq/L) 3.4 L Chloride (100 - 115 mEq/L) 103 Carbon Dioxide (22 - 31 mEq/L) 26 Anion Gap (10 - 20) 13.10 BUN (7 - 18 mg/dL) 12 Creatinine (0.5 - 1.0 mg/dL) 0.6 Glomerular Filtr Rate (>60 ml/min) 120 Glucose (65 - 110 mg/dL) 102 Calcium (8.4 - 10.2 mg/dL) 8.7 Total Bilirubin (0.2 - 1.0 mg/dL) 0.4 AST (15 - 37 units/L) 14 L ALT (12 - 78 units/L) 12 Total Alk Phosphatase (46 - 116 units/L) 58 Total Protein (6.3 - 8.2 gm/dL) 6.5 Albumin (3.4 - 4.8 gm/dL) 3.7 Amylase (30 - 110 units/L) 21 L Lipase (73 - 393 units/L) 71 L Hematology WBC (6.6 - 12.1 K/mm3) 10.0 RBC (3.45 - 5.01 M/mm3) 3.99 Hgb (10.7 - 13.9 g/dL) 10.2 L Hct (32.1 - 42.1 %) 31.5 L MCV (84.1 - 94.8 fL) 79 L MCH (27 - 35 pg) 25.6 L MCHC (32.2 - 34.1 gm/dL) 32.4 RDW (12.4 - 16.5 %) 16.8 H Plt Count (133 - 385 K/mm3) 229 MPV (9.1 - 12.7 fl) 10.5 Neut % (Auto) (56.5 - 79.4 %) 72.3 Lymph % (Auto) (14.3 - 34.3 %) 20.7 Cuming % (Auto) (5.1 - 10.4 %) 6.0 Eos % (Auto) (0.1 - 3.0 %) 0.6 Baso % (Auto) (0.1 - 1.0 %) 0.2 Neut # (Auto) (K/mm3) 7.3 Lymph # (Auto) (K/mm3) 2.1 Cuming # (Auto) (K/mm3) 0.6 Eos # (Auto) (K/mm3) 0.06 Baso # (Auto) (K/mm3) 0.0 Immature Plt Fraction (0.0 - 10.8 %) 0.0 Miscellaneous Maternal Serum HCG 56322 Urines Urine Color (YELLOW) YELLOW Urine Appearance (CLEAR) CLOUDY Urine pH (5 - 9) 5.0 Ur Specific Welsh (1.001 - 1.035) 1.025 Urine Protein (NEG) NEGATIVE Urine Glucose (UA) (NEG) NEGATIVE Urine Ketones (NEG) NEGATIVE Urine Blood (NEG) NEG Urine Nitrite (NEG) NEG Urine Bilirubin (NEG) NEGATIVE Urine Urobilinogen (NEG mg/dL) 1.0 Ur Leukocyte Esterase (NEG) NEG Urine RBC (NONE SEEN #/hpf) 0-2 Urine WBC (NONE SEEN #/hpf) 3-5 H Ur Epithelial Cells (RARE - FEW #/HPF) RARE Urine Bacteria (RARE - FEW /HPF) FEW Urine Mucus (NONE SEEN) 4+ Recent Impressions: ULTRASOUND - US PREG EVAL 1ST TRIMTR 12/10 1330 Report Impression - Status: SIGNED Entered: 12/10/2018 1428 CLINICAL SUMMARY Type of Gestation: Rasmussen, intrauterine. motion and organs seen: heart motion seen THERE IS A SMALL SUBCHORIONIC BLEED MEASURING 2.6X1.5X2.1CM. Thank you for allowing us to participate in the care of this patient. Kelechi Ramirez M.D. Impression By: [email or web address] - Kelechi Ramirez MD Lab Imaging Statement Laboratory radiographic studies reviewed and considered in the medical decision-making. Point of Care Testing Pulse Oximetry Pulse Ox % 100 On: Room air Interpretation Interpreted by me, Pulse oximetry normal Re-Evaluation MDM Free Text MDM Notes Free Text MDM Notes VIABLE IUP WITH SMALL SUBCHORIONIC SEEN ON US AT THIS TIME. TOLERATING PO, SAFE FOR DISCHARGE FROM THE ED. PO VITAMINS, F/U WITH HOME HEALTH AIDE CAREGIVER. ER PRECAUTIONS GIVEN ED Course Medication(s) Ordered Medication(s) Ordered: Electrolytic, Caloric, And Tiara Sig/Neil Start time Last Medication Dose Route Stop Time Status Admin Sodium Chloride 1,000 ML X1ED STA 12/10 1306 DC 12/10 IV 12/10 1307 1317 Gastrointestinal Drugs Sig/Neil Start time Last Medication Dose Route Stop Time Status Admin Ondansetron HCl 4 MG X1ED STA 12/10 1306 DC 12/10 IV 12/10 1307 1317 Patient Discharge Departure Vital Signs/Condition Vital Signs First Documented: Result Date Time Pulse Ox 100 12/10 1242 B/P 114/74 12/10 1242 B/P Mean 87 12/10 1242 O2 Delivery Room air 12/10 1242 Temp 37.1 12/10 1242 Pulse 84 12/10 1242 Resp 18 12/10 1242 Last Documented: Result Date Time Pulse Ox 100 12/10 1452 B/P 113/65 12/10 1452 B/P Mean 81 12/10 1452 O2 Delivery Room air 12/10 1452 Temp 37.1 12/10 1452 Pulse 80 12/10 1452 Resp 18 12/10 1452 All vital signs available at the time of this entry have been reviewed. Condition Improved, Stable Clinical Impression Clinical Impression Primary Impression: Vomiting during Secondary Impressions: Subchorionic hemorrhage in first trimester Disposition Decision Discharge )( Discharged to Home Yes )( Time 1433 )( Date 12/10/18 Discharge/Care Plan Counseled Regarding Diagnosis, Lab results, Imaging studies, Need for follow-up, When to return to ED Discharge Note I have spoken with the patient and/or caregivers. I have explained the patient's condition, diagnoses and treatment plan based on the information available to me at this time. I have answered the patient's and/or caregiver's questions and addressed any concerns. The patient and/or caregivers have as good an understanding of the patient's diagnosis, condition and treatment plan as can be expected at this point. The vital signs have been stable. The patient's condition is stable and appropriate for discharge from the emergency department. The patient will pursue further outpatient evaluation with the primary care physician or other designated or consulting physician as outlined in the discharge instructions. The patient and/or caregivers are agreeable to this plan of care and follow-up instructions have been explained in detail. The patient and/or caregivers have received these instructions in written format and have expressed an understanding of the discharge instructions. The patient and/or caregivers are aware that any significant change in condition or worsening of symptoms should prompt an immediate return to this or the closest emergency department or a call to 911. Quality Measures US in Preg w/AP/VB Trans-abd/vag US done at 1505 RPT #:[id number] END OF REPORT [facility] 2018-08-24 14:06:00 [facility] ([facility]) Discharge Summary REPORT#:[id number] REPORT STATUS: Signed DATE:08/24/18 TIME: 1406 PATIENT: RUSH JO UNIT #: [id number] ROOM/BED: : 91 AGE: 28 SEX: F ATTEND: Yehuda Eaton MD ADM AUTHOR: Yehuda Eaton MD * ALL edits or amendments must be made on the electronic/computer document * PCP PCP Discharge to: home General Information Date of discharge: 08/24/18 Hospital course: See op note Discharge Instructions Diet: regular Activity: non-strenuous Follow-up Appointments PCP: PCP: Samantha Adkins MD Attending Physician: Attending Physician: Yehuda Eaton MD at 1406 RPT #:[id number] END OF REPORT [facility] 2018-08-24 14:02:00 [id number] [place] [id number] PATIENT NAME: RUSH JO ADMIT DATE: 08/24/18 ACCOUNT NO: [id number] ROOM NO: AGE: 28 SEX: F ADMITTING PHYSICIAN: ATTENDING PHYSICIAN: Yehuda Eaton MD OPERATION DATE: 08/24/2018 PREOPERATIVE DIAGNOSIS: Missed . POSTOPERATIVE DIAGNOSIS: Missed . PROCEDURES: Suction D and C. SURGEON: Yehuda Eaton MD SWITCHBOARD TROUBLESHOOTER: None. ESTIMATED BLOOD LOSS: 150 mL. INTRAVENOUS FLUIDS: 500 mL. URINE OUTPUT: 30 mL. FINDINGS: Products of conception. COMPLICATIONS: None. PATHOLOGY: POCs. ANESTHESIA: General endotracheal. COUNTS: Sponge, lap, needle count correct x2. PROCEDURE IN DETAIL: After the risks, benefits, and alternatives have been explained to the patient, risks including infection, bleeding, uterine perforation causing damage to bowel, bladder or need for additional surgery including additional D and C. The patient's questions were answered, informed consent was obtained. She was then brought back to the operating room, prepped and draped in dorsal lithotomy position in the [facility]. Exam under anesthesia revealed a 10-week size uterus. Cervical os was closed. She was then dilated up to 15-Sammarinese. After being placed in Trendelenburg positioning and draining the bladder with a red rubber catheter liberating 30 mL of clear urine after she was dilated up to 15-Sammarinese, we then passed the size 10 flexible suction cannula through the cervical os and liberated moderate amount of products of conception as well as blood clots and it should be noted that I checked the suction device to make sure that the suction was in the green zone. I then passed a large curette non-serrated into the uterine cavity and performed PATIENT NAME: RUSH JO a gentle curettage in a circumferential manner. I then passed the suction device again and liberated a similar small amount of material with the second pass. I then passed the non-serrated curette again and noted gritty texture throughout the endometrial cavity. I also noted that the uterus had now started to clamp down and we ordered 20 milliunits of IV Pitocin to be administered by anesthesia, which they did. Excellent uterine tone was noted. Excellent hemostasis was appreciated. It should also be noted the patient was given 200 mg of doxycycline IV prior to surgery. She tolerated the procedure well. She is extubated to recovery in stable condition and will be discharged home with p.o. pain medication and will follow up with me in 1 to 2 weeks. Dictated By: Yehuda Eaton MD WT: OP:[email or web address]/ENID.[email or web address] Conf#: [id number]#: [id number] Authenticated by Yehuda Eaton MD On 09/01/2018 02:32:44 PM at 1433 PATIENT NAME: GREGORIO JORICHARDSON Osborn [facility] 2018-08-24 13:57:00 [facility] ([facility]) Full Op Note REPORT#:[id number] REPORT STATUS: Signed DATE:08/24/18 TIME: 1357 PATIENT: RUSH JO UNIT #: [id number] ROOM/BED: : 91 AGE: 28 SEX: F ATTEND: Yehuda Eaton MD ADM AUTHOR: Yehuda Eaton MD * ALL edits or amendments must be made on the electronic/computer document * Operative Report Start date: 08/24/18 Start time: 1356 Pre-procedure diagnosis: Missed ab Post-procedure diagnosis: Same Procedures performed: Suction D and C Technique/Procedure: See dictation Primary Surgeon: Yehuda Eaton Steel Wool Machine Operator(s): none Anesthesia: general anesthesia Operative findings: POCs Complications: none Estimated blood loss in ml's: 150 Specimens removed/altered: POCs Implant(s): none Fluids: 500 Urine output: 30 Disposition: plan to D/C home Counts: Sponge count: correct Instrument count: correct Wound class: clean at 1359 RPT #:[id number] END OF REPORT [facility] 2018-08-24 13:57:00 [facility] ([facility]) Full Op Note REPORT#:[id number] REPORT STATUS: Signed DATE:08/24/18 TIME: 135 PATIENT: RUSH JO UNIT #: [id number] ROOM/BED: : 91 AGE: 28 SEX: F ATTEND: Yehuda Eaton MD ADM AUTHOR: Yehuda Eaton MD * ALL edits or amendments must be made on the electronic/computer document * See Addendum Operative Report Start date: 08/24/18 Start time: 1356 Pre-procedure diagnosis: Missed ab Post-procedure diagnosis: Same Procedures performed: Suction D and C Technique/Procedure: See dictation Primary Surgeon: Yehuda Eaton Steel Wool Machine Operator(s): none Anesthesia: general anesthesia Operative findings: POCs Complications: none Estimated blood loss in ml's: 150 Specimens removed/altered: POCs Implant(s): none Fluids: 500 Urine output: 30 Disposition: plan to D/C home Counts: Sponge count: correct Instrument count: correct Wound class: clean at 1359 Addendum 1: 08/24/18 1402 by Yehuda Eaton MD [id number] at 1402 RPT #:[id number] END OF REPORT [facility] 2018-08-24 13:04:00 [facility] ([facility]) History Physical - Adult REPORT#:[id number] REPORT STATUS: Signed DATE:08/24/18 TIME: 1304 PATIENT: RUSH JO UNIT #: [id number] ROOM/BED: : 91 AGE: 28 SEX: F ATTEND: Yehuda Eaton MD ADM AUTHOR: Yehuda Eaton MD * ALL edits or amendments must be made on the electronic/computer document * History of Present Illness HPI Chief complaint: Missed Ab HPI: 28 y/o at approx 10 weeks, presented to clinic earlier this week and was found to not have any FHTs on sono. She went to radiology, where a missed ab was confirmed. She was given cytotec, and notes that overnight, she felt that she had bleeding and may have passed tissue, but was still having bleeding and cramping. She was noted to have a closed cervix, but bedside sono showed what appeared to be blood in the uterus. She was counseled, and requested suction D and C. She denies any fevers/chills/nausea. She notes that her bleeding has decreased. History Past medical history: Denies: Anemia. Additional medical history: pre-eclampsia Past surgical history: Reports: . Family history: Denies: Anemia. Alcohol use: Denies EtOH use Drug use: Denies recreational drugs Smoking status for patients 13 years old or older: Former Smoker Medication/Allergy-Vaccine Hx Allergies: Coded Allergies: No Known Allergies (09/23/16) Review of Systems Constitutional: Denies: chills, fatigue, fever, generalized weakness, lethargy, malaise, recent wt loss, other. Skin: Denies: abrasion, bruising, contusion, diaphoresis, ecchymosis, itching, laceration, rash, swelling, other. Allergy/Immun: Denies: allergic reaction, anaphylaxis, hives, itching, rhinorrhea, sneezing, other. Eyes: Denies: redness, discharge, visual loss/blurred, itching, diplopia, eye pain, photophobia, swelling, other. ENT: Denies: ear drainage, ear ringing, earache, hearing loss, mouth pain, nasal congestion, nose bleeding, sinus problem, sore throat, throat pain, throat swelling, tongue pain, tongue swelling, toothache, voice change, other. Respiratory: Denies: FARIA (dyspnea on exertion), hemoptysis, non productive cough, parox nocturnal dyspnea, pleurisy, pleuritic pain, pneumonia, productive cough (sputum ), SOB, wheezing, other. Cardiovascular: Denies: chest pain, FARIA (dyspnea on exertion), edema, orthopnea, palpitations, parox nocturnal dyspnea, other. GI: Denies: abdominal pain, anorexia, constipation, diarrhea, dysphagia, GERD, hematemesis, hematochezia, hiatal hernia, melena, nausea, rectal pain, vomiting, other. : Reports: , vaginal bleeding. Denies: dysuria, flank pain, frequency, hematuria, nocturia, pelvic pain, urgency, urinary retention, vaginal discharge, other. Musculoskeletal: Denies: arthritis, extremity pain, extremity swelling, joint pain, joint swelling, lumbar pain, myalgias, neck pain, thoracic pain, other. Heme: Denies: adenopathy, bleeding, bruising, petechiae, other. Endocrine: Denies: cold intolerance, heat intolerance, polydipsia, polyphagia, polyuria, weight gain, weight loss, other. Neuro: Denies: bladder dysfunction, bowel dysfunction, change in LOC, confusion, dizziness, focal weakness, gait problem, headache, lightheaded, numbness, seizure, slurred speech, spinning sensation, syncope, unable to speak, vision change, weakness, other. Psych: Denies: agitation, anxiety, auditory hallucination, change in mental status, confusion, delusional, depression, homicidal ideation, hostile, insomnia, stress , suicidal ideation, visual hallucination, other. Physical Exam VS/I O Laboratory Tests: 08/24 1056 Hematology WBC (6.6 - 12.1 K/mm3) 10.9 RBC (3.45 - 5.01 M/mm3) 3.51 Hgb (10.7 - 13.9 g/dL) 10.6 L Hct (32.1 - 42.1 %) 32.4 MCV (84.1 - 94.8 fL) 92 MCH (27 - 35 pg) 30.2 MCHC (32.2 - 34.1 gm/dL) 32.7 RDW (12.4 - 16.5 %) 13.2 Plt Count (133 - 385 K/mm3) 226 MPV (9.1 - 12.7 fl) 10.4 Neut % (Auto) (56.5 - 79.4 %) 73.6 Lymph % (Auto) (14.3 - 34.3 %) 16.8 Cuming % (Auto) (5.1 - 10.4 %) 5.9 Eos % (Auto) (0.1 - 3.0 %) 2.9 Baso % (Auto) (0.1 - 1.0 %) 0.3 Neut # (Auto) (K/mm3) 8.0 Lymph # (Auto) (K/mm3) 1.8 Cuming # (Auto) (K/mm3) 0.6 Eos # (Auto) (K/mm3) 0.32 Baso # (Auto) (K/mm3) 0.0 Immature Plt Fraction (0.0 - 10.8 %) 0.0 Vital Signs: Date Time Temp Pulse Resp B/P B/P Pulse O2 O2 Flow FiO2 Mean Ox Delivery Rate 08/24 1145 98.8 80 18 107/69 99 Room air General appearance: alert, awake, oriented, no acute distress, pleasant, conversational, mental status normal, no respiratory distress Head/Eyes: normocephalic ENT: moist mucosal membranes Neck: non-tender Cardiovascular: regular rate rhythm Respiratory: no distress, no tenderness, aerating well, symmetric expansion Abdomen/GI: soft Genitourinary: deferred Extremities: moves all Musculoskeletal: full range of motion 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 Pt's questions answered. Labs stable. at 1309 RPT #:[id number] END OF REPORT [facility]
[2025-03-02] MEDS ORDERED: PROMETHAZINE INJ 25 MG/ML AMP ONE (15:07)
[2025-03-02] MEDS ORDERED: NA CHLORIDE 0.9% 1,000 ML ONE (15:07)
[2025-03-02 15:21] LABS: Sqamous Epithelial <5 /HPF (None Seen); Urine Crystals Unidentified Few /HPF (None Seen); Urine Culture Reflex Order NOT NEEDED; Urine Microscopic Reflex YN ORDER UMIC; Urine WBC Clump Occasional /HPF (None Seen); Urine Yeast (Budding) Moderate /HPF (None Seen)
[2025-03-02 15:22] LABS: Absolute Lymphocytes (CBC) 0.9 K/uL (0.7-4.9); Hematocrit 32.2 % (36.0-45.0); Hemoglobin 11.4 g/dL (12.0-15.0); MCH 30.9 pg (27.0-35.0); MCHC 35.5 g/dL (32.0-36.0); MCV 87.0 fL (80-100); MPV 8.3 fL (7.6-11.3); Nucleated RBC Absolute Count 0.0 (0-0); Nucleated Red Blood Cells % 0.0 % (0-0); RBC Red Blood Cell Count 3.70 M/uL (3.86-4.86); White Blood Count 10.20 thou/uL (4.3-10.9)
--- NOTE | 2025-03-02 15:56 | RAD REPORT ---
EXAM: OB Limited HISTORY: ABD PAIN COMPARISON: None TECHNIQUE: Multiple grayscale and color Doppler images were obtained in a transabdominal pelvic ultra sound. Spectral analysis of the Doppler waveforms of the ovaries were performed. FINDINGS: UTERUS: Single gestation identified with positive heart tones. heart rate is measured at 153 bpm. The femur length measures 2.3 cm which is consistent with 16 week 6 day. The placenta is anterior. The fetus is in breech position. The cervix is closed measuring 3.8 cm. No free fluid is seen in the pelvis. RIGHT OVARY: Not visualized, possibly obscured by bowel gas. LEFT OVARY: Not visualized, possibly obscured by bowel gas. IMPRESSION: Single live IUP with positive heart tones. Closed cervix. Neither ovary visualized.
[2025-03-02 16:06] LABS: Anion Gap 11.5 mEq/L (5.0-15.0); BUN Blood Urea Nitrogen 8.0 mg/dL (7-18); Glucose Level 84.0 mg/dL (74-106); Potassium 3.5 mEq/L (3.5-5.1)
--- NOTE | 2025-03-02 16:21 | ER ---
Nurse's Notes [facility] Name: Joann Obando Age: 34 yrs Sex: Female : 1990 Arrival Date: 03/02/2025 Time: 14:13 Bed 5 Private MD: Diagnosis: Vomiting of , unspecified Presentation: 03/02 14:24 Chief complaint: Patient states: headache and vomiting since yesterday. Pt reports me1 vomited 5 times today and unable to tolerate liquids. Denies abd pain, denies vaginal bleeding. 14:24 Coronavirus screen: nausea, vomiting. Ebola Screen: Patient denies travel to an [facility] Ebola-affected area in the 21 days before illness onset. Initial Sepsis Screen: Does the patient meet any 2 criteria? No. Patient's initial sepsis screen is negative. Does the patient have a suspected source of infection? No. Patient's initial sepsis screen is negative. Risk Assessment: Do you want to hurt yourself or someone else? Patient reports no desire to harm self or others. Onset of symptoms was 2024. 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 - Infectious Disease History:: Denies. - Social history:: Smoking status: Patient denies any tobacco usage or history of. Screenin:08 [facility] ED Fall Risk Assessment (Adult) History of falling in the last 3 months, me1 including since admission No falls in past 3 months (0 pts) Confusion or Disorientation No (0 pts) Intoxicated or Sedated No (0 pts) Impaired Gait No (0 pts) Mobility Assist Device Used No (0 pt) Altered Elimination No (0 pt) Score/Fall Risk Level 0 - 2 = Low Risk Maintained a safe environment, Provided non-skid footwear, Hourly rounding (assess needs \T\ fall precautionary measures) done. Abuse screen: Denies threats or abuse. Nutritional screening: No deficits noted. Tuberculosis screening: No symptoms or risk factors identified. Assessment: 15:08 General: Appears ill, well groomed, well developed, well nourished, Behavior is calm, me1 cooperative, appropriate for age, Reports headache and vomiting since yesterday. Pt reports vomited 5 times today and unable to tolerate liquids. Denies abd pain, denies vaginal bleeding. Pain: Complains of pain in face Pain does not radiate. Pain currently is 4 out of 10 on a pain scale. Quality of pain is described as aching, Pain began 4 hours ago. Is continuous. Neuro: Level of Consciousness is awake, alert, obeys commands, Oriented to person, place, time, situation, Appropriate for age Reports headache. Cardiovascular: Patient's skin is warm and dry. Respiratory: Airway is patent Respiratory effort is even, unlabored, Respiratory pattern is regular, symmetrical. GI: Abdomen is non-distended, Reports nausea, vomiting, since yesterday. : No signs and/or symptoms were reported regarding the genitourinary system. EENT: No signs and/or symptoms were reported regarding the EENT system. Derm: Skin is intact, is healthy with good turgor, Skin is normal. Musculoskeletal: No signs and/or symptoms reported regarding the musculoskeletal system. Circulation, motion, and sensation intact. Range of motion: intact in all extremities. 16:27 Reassessment: Pt will be discharged once fluids are completed. [facility] 18:39 Reassessment: Pt's air pod case and the right air pod inside the case was found in the 7 pt's room after discharge. Pt notified by phone and reports they will return in the morning to pick it up. The case and air pod is in a bog in the general manager food's office. Vital Signs: 14:24 BP 111 / 65; Pulse 76; Resp 18 S; Temp 98(TE); Pulse Ox 100% on R/A; aa5 14:30 BP 122 / 92; Pulse 79; Resp 16; Pulse Ox 100% on R/A; cf3 15:30 BP 100 / 64; Pulse 68; Resp 16; Pulse Ox 100% on R/A; cf3 16:26 BP 96 / 64; Pulse 75; Resp 15; Pulse Ox 100% ; jl7 ED Course: 14:17 Patient arrived in ED. gl 14:17 Dawna Woodall FNP-C is [facility]. kb 14:17 Kristy Mckinley MD is Attending Physician. kb 14:24 Arm band placed on. aa5 14:27 Triage completed. aa5 15:03 Initial lab(s) drawn, by me, sent to lab. Inserted saline lock: 20 gauge in right aa5 antecubital area, using aseptic technique. Blood collected. Flushed with 10 mL NS. 15:05 Keshawn Mao, STACIE is Primary Nurse. cf3 15:05 Urine collected: sent to lab. aa5 15:08 Patient has correct armband on for positive identification. Bed in low position. Call me1 light in reach. Side rails up X2. Provided Education on: POC. Verbalized understanding.. Client placed on continuous cardiac and pulse oximetry monitoring. NIBP monitoring applied. Pulse ox on. NIBP on. 15:08 No provider procedures requiring assistance completed. me1 15:28 US OB Limited In Process Unspecified. EDMS 17:19 IV discontinued, intact, bleeding controlled, No redness/swelling at site. Pressure cf3 dressing applied. Administered Medications: 15:29 Drug: NS 0.9% IV 1000 ml IV at 1000 ml once; to be given as a bolus over 60 minutes cf3 Route: IV; Rate: 1000 ml; Site: right forearm; 17:19 Follow up: Response: No adverse reaction; IV Status: Completed infusion; IV Intake: cf3 1000ml 15:29 Drug: Promethazine IM 25 mg IM once Route: IM; Site: Ventrogluteal LEFT; cf3 16:07 Follow up: Response: No adverse reaction; Nausea is decreased cf3 Medication: 15:08 VIS not applicable for this client. me1 Intake: 17:19 IV: 1000ml; Total: 1000ml. cf3 Outcome: 16:20 Discharge ordered by MD. kb 17:18 Discharged to home ambulatory, cf3 17:18 Condition: improved 17:18 Discharge instructions given to patient, Instructed on discharge instructions, follow up and referral plans. 17:21 Patient left the ED. cf3 Signatures: Dispatcher [employer] EDIA Dawna Woodall FNP-C FNP-Iman Torres RN RN aa5 Miguelangel Selby RN RN jl7 Joselin Wheat RN RN me1 Sona Heller, Reg Reg gl Keshawn Mao, RN RN cf3 Corrections: (The following items were deleted from the chart) 15:07 14:24 Chief complaint: Patient states: headache and vomiting since yesterday. Pt me1 reports vomited 5 times today and unable to tolerate liquids. Denies abd pain, denies vaginal bleeding. aa5
--- NOTE | 2025-03-02 16:21 | EDPHYS ---
Physician Documentation [facility] Name: Joann Obando Age: 34 yrs Sex: Female : 1990 Arrival Date: 03/02/2025 Time: 14:13 Bed 5 Private MD: ED Physician Kristy Mckinley HPI: 03/02 14:30 This 34 yrs old Female presents to ER via Ambulatory with complaints of kb Nausea/Vomiting - 17 WKS . 14:35 Patient is a 34-year-old female who is currently 17 weeks who presents for kb nausea and vomiting that started yesterday. Denies fever, abdominal pain, vaginal bleeding. States she did cough once and had a burning pain to her site but that went away. States she has not been able to tolerate p.o. intake today. A1. . 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 - Infectious Disease History:: Denies. - Social history:: Smoking status: Patient denies any tobacco usage or history of. ROS: 14:29 Constitutional: As per HPI kb Exam: 14:29 Constitutional: This is a well developed, well nourished patient who is awake, alert, kb and in no acute distress. Head/Face: Normocephalic, atraumatic. ENT: Moist Mucous membranes Cardiovascular: Regular rate Respiratory: Respirations even and unlabored. No increased work of breathing. Talking in full sentences Abdomen/GI: Soft, non-tender. No distention Skin: Warm, dry with normal turgor. Normal color. MS/ Extremity: Pulses equal, no cyanosis. Neurovascular intact. Full, normal range of motion. Neuro: Awake and alert, GCS 15, oriented to person, place, time, and situation. Vital Signs: 14:24 BP 111 / 65; Pulse 76; Resp 18 S; Temp 98(TE); Pulse Ox 100% on R/A; aa5 14:30 BP 122 / 92; Pulse 79; Resp 16; Pulse Ox 100% on R/A; cf3 15:30 BP 100 / 64; Pulse 68; Resp 16; Pulse Ox 100% on R/A; cf3 16:26 BP 96 / 64; Pulse 75; Resp 15; Pulse Ox 100% ; jl7 MDM: 14:18 Medical Screening Exam initiated kb 14:30 Differential diagnosis: viral gastroenteritis, Vomiting of , dehydration, kb abnormal electrolytes. Data reviewed: vital signs, nurses notes. 14:37 ED course: Patient is a 34-year-old female who presents for nausea and vomiting that kb started yesterday. Patient is 17 weeks . On exam patient has no abdominal tenderness, no distress. Moist mucous membranes. Will obtain serum labs, urinalysis and ultrasound. Will give IV fluids for hydration and Phenergan for nausea.. 16:19 Counseling: I had a detailed discussion with the patient and/or guardian regarding the kb historical points, exam findings, and any diagnostic results supporting the discharge/admit diagnosis, lab results, radiology results, the need for outpatient follow up, an OB/Gyne specialist, to return to the emergency department if symptoms worsen or persist or if there are any questions or concerns that arise at home. 03/02 14:27 Order name: Basic Metabolic Panel; Complete Time: 16:06 kb 03/02 14:27 Order name: CBC with Diff kb 03/02 14:30 Order name: UA Rfx Javier Cult if indicated; Complete Time: 15:29 kb 03/02 14:27 Order name: US OB Limited; Complete Time: 15:57 kb 03/02 14:27 Order name: IV Saline Lock; Complete Time: 15:09 kb 03/02 14:27 Order name: Labs collected and sent; Complete Time: 15:09 kb 03/02 14:27 Order name: NPO; Complete Time: 15:05 kb 03/02 15:57 Order name: PO challenge; Complete Time: 16:07 kb Administered Medications: 15:29 Drug: NS 0.9% IV 1000 ml IV at 1000 ml once; to be given as a bolus over 60 minutes cf3 Route: IV; Rate: 1000 ml; Site: right forearm; 17:19 Follow up: Response: No adverse reaction; IV Status: Completed infusion; IV Intake: cf3 1000ml 15:29 Drug: Promethazine IM 25 mg IM once Route: IM; Site: Ventrogluteal LEFT; cf3 16:07 Follow up: Response: No adverse reaction; Nausea is decreased cf3 Disposition Summary: 03/02/25 16:20 Discharge Ordered Notes: Location: Home kb Condition: Stable kb Diagnosis - Vomiting of , unspecified kb Followup: kb - With: Emergency Department - When: As needed - Reason: Worsening of condition Followup: kb - With: Private Physician - When: 2 - 3 days - Reason: Recheck today's complaints, Continuance of care, Re-evaluation by your physician Discharge Instructions: - Discharge Summary Sheet kb - Nausea and Vomiting, Adult, [id number] kb Forms: - Medication Reconciliation Form kb - Antibiotic Education kb - Prescription Opioid Use kb - Patient Portal Instructions kb - Leadership Thank You Letter kb Signatures: Dispatcher [employer] Dawna Michaud, STEAM TUNNEL FEEDER-C STEAM TUNNEL FEEDER-Iman Torres, RN RN aa5 Joselin Wheat RN RN me1 Keshawn Mao, RN RN cf3
[2025-03-02 17:33] VITALS: TEMP 98; O2SAT 100
[2025-03-02 17:39] VITALS: BP 96/64
[2025-03-02 19:29] LABS: Blood Morphology Comment NOT SEEN (NOT SEEN); White Blood Cell Scan OK (OK)
== END 2025-03-02 17:21 | disposition home or self-care (01) ==
LOC: ER 14:13
DX: O21.9 Vomiting of pregnancy, unspecified (principal); Z3A.17 17 weeks gestation of pregnancy
CPT/HCPCS: 96361; 85025; 81001; 80048; 36415; 76815; 96360; 96372; 99284; J2550; J7030